=== PATIENT | male | born 1945 | race African-American/Black ===

== ENCOUNTER 2016-08-28 14:47 | Emergency (ER) | payer MEDICARE, MEDICAID ==
[~2016-08-28] VITALS: Ht 170.2 cm; Wt 90.7 kg
[2016-08-28 15:43] LABS: BASOPHILS % (AUTO) 0.8 % (0.0-2.0); EOSINOPHILS % (AUTO) 1.4 % (0.0-3.0); LYMPHOCYTES % (AUTO) 22.5 % (20.0-45.0); MEAN CORPUSCULAR HEMOGLOBIN 30.5 PG (27.0-31.0); MEAN CORPUSCULAR HGB CONC 32.9 G/DL (32.0-36.0); MEAN CORPUSCULAR VOLUME 93 FL (80-99); MEAN PLATELET VOLUME 5.7 FL (6.5-10.1); MONOCYTES % (AUTO) 8.5 % (1.0-10.0); NEUTROPHILS % (AUTO) 66.9 % (45.0-75.0); PLATELET COUNT 215 K/UL (150-450); RED BLOOD COUNT 4.36 M/UL (4.70-6.10)
[2016-08-28 15:58] LABS: PROTHROMBIN TIME 10.7 SEC (9.30-11.50)
[2016-08-28 16:00] LABS: TROPONIN I < 0.30 ng/mL (<=0.30)
[2016-08-28 16:01] LABS: ALANINE AMINOTRANSFERASE 21 U/L (3-41); ALBUMIN/GLOBULIN RATIO 1.3 (1.0-2.7); ANION GAP 12 (5-15); ASPARTATE AMINO TRANSFERASE 21 U/L (5-40); CALCIUM 9.6 mg/dL (8.6-10.2); CARBON DIOXIDE 27 mEQ/L (20-30); CHLORIDE 99 mEQ/L (98-107); CREATININE 1.1 mg/dL (0.7-1.2); HEMOLYSIS 6; POTASSIUM 4.2 mEQ/L (3.4-4.9); SODIUM 138 mEQ/L (135-145); TOTAL PROTEIN 6.9 g/dL (6.6-8.7)
[2016-08-28 17:30] LABS: KETONES,URINE NEGATIVE (NEGATIVE); LEUKOCYTE ESTERASE ,URINE NEGATIVE (NEGATIVE); NITRITE,URINE NEGATIVE (NEGATIVE); PH,URINE 5 (4.5-8.0); PROTEIN,URINE NEGATIVE (NEGATIVE); UROBILINOGEN,URINE 4 MG/DL (0.0-1.0)
[2016-08-28 17:31] LABS: APPEARANCE,URINE CLEAR
[2016-08-28] MEDS ORDERED: FOLIC ACID1 MG ORAL (17:31)
[2016-08-28] MEDS ORDERED: ACETAMINOPHEN325 M1 ORAL (17:31)
[2016-08-28] MEDS ORDERED: GABAPENTIN300 MG ORAL (17:31)
[2016-08-28] MEDS ORDERED: FUROSEMIDE20 M1 ORAL (17:31)
[2016-08-28] MEDS ORDERED: HUMULIN R100 UNIT/1 SUBQ (17:32)
[2016-08-28] MEDS ORDERED: LIDOCAINE 0.5% TOPIC (17:36)
[2016-08-28] MEDS ORDERED: METFORMIN HCL500 M1 ORAL (17:36)
[2016-08-28] MEDS ORDERED: MILK OF MA400 MG/51 ORAL (17:36)
[2016-08-28] MEDS ORDERED: REGLAN10 M1 ORAL (17:36)
[2016-08-28] MEDS ORDERED: IMODIUM2 MG ORAL (17:36)
[2016-08-28] MEDS ORDERED: METOPROLOL TART25 MG ORAL (17:36)
[2016-08-28] MEDS ORDERED: Mylanta ORAL (17:38)
[2016-08-28] MEDS ORDERED: PAROXETINE HCL20 MG PO (17:38)
[2016-08-28] MEDS ORDERED: SIMVASTATIN40 MG ORAL (17:38)
[2016-08-28] MEDS ORDERED: SEROQUEL200 MG ORAL (17:38)
[2016-08-28 18:52] VITALS: BP 125/76
--- NOTE | 2016-08-28 19:00 | Emergency Room Report ---
History of Present Illness General Chief Complaint: General Complaint Source: Patient, Medical Record, EMS Present Illness HPI Patient presents with h/o alleged fever 102 this am. Patient denies all symptoms. He has chronic weakness which has not changed. H/O polyneuropathy, osteoarthritis and gastroparesis. In SNF. 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 [place] Reviewed Nursing Documentation: PMH: Agreed, PSxH: Agreed Nursing Documentation-PMH Past Medical History: No History, Except For Hx Hypertension: Yes Hx Asthma: Yes - Acute respiratory faioure with hypoxia Hx Diabetes: Yes Hx Gastrointestinal Problems: Yes - Gastroparesis History Of Psychiatric Problem: Yes - Paranoid schizophrenia, Major depression Hx Neurological Problems: Yes - polyneuropathy, generalzied weakness Review of Systems All Other Systems: negative except mentioned in HPI Physical Exam Vital Signs Date Time Temp Pulse Resp B/P Pulse Ox O2 Delivery O2 Flow Rate FiO2 08/28/16 14:52 98.2 70 18 110/70 100 Room Air Sp02 EP Interpretation: reviewed, normal General Appearance: well appearing, no apparent distress, GCS 15 Head: normocephalic Eyes: bilateral eye PERRL, bilateral eye normal inspection ENT: moist mucus membranes Neck: supple Respiratory: lungs clear, normal breath sounds Cardiovascular #1: regular rate, rhythm, edema - LE Cardiovascular #2: 2+ radial (R) Gastrointestinal: normal inspection, normal bowel sounds, non tender, no mass, non-distended, overweight Genitourinary: normal inspection Musculoskeletal: back normal, no calf tenderness Neurologic: alert, oriented x3, motor weakness - lower extremities Psychiatric: mood/affect normal Skin: normal inspection, warm/dry Medical Decision Making Diagnostic Impression: Primary Impression: Encounter for generalized patient complaints ER Course Patient here for evaluation of reported fever. DDx: UTI, pneumonia, cellulitis amongst others. Evaluation with EKG, labs, CXR. Treatment with some IV hydration. No infectious source identified. Labs, EKG, CXR normal. Discussed with Dr. Martinez. Laura for outpatient observation and treatment. Laboratory Tests Test 08/28/16 15:30 08/28/16 16:00 White Blood Count 6.0 K/UL (4.8-10.8) Red Blood Count 4.36 M/UL (4.70-6.10) L Hemoglobin 13.3 G/DL (14.2-18.0) L Hematocrit 40.4 % (42.0-52.0) L Mean Corpuscular Volume 93 FL (80-99) Mean Corpuscular Hemoglobin 30.5 PG (27.0-31.0) Mean Corpuscular Hemoglobin Concent 32.9 G/DL (32.0-36.0) Red Cell Distribution Width 12.0 % (11.6-14.8) Platelet Count 215 K/UL (150-450) Mean Platelet Volume 5.7 FL (6.5-10.1) L Neutrophils (%) (Auto) 66.9 % (45.0-75.0) Lymphocytes (%) (Auto) 22.5 % (20.0-45.0) Monocytes (%) (Auto) 8.5 % (1.0-10.0) Eosinophils (%) (Auto) 1.4 % (0.0-3.0) Basophils (%) (Auto) 0.8 % (0.0-2.0) Prothrombin Time 10.7 SEC (9.30-11.50) Prothrombin Time INR 1.0 (0.9-1.1) PTT 27 SEC (23-33) Sodium Level 138 mEQ/L (135-145) Potassium Level 4.2 mEQ/L (3.4-4.9) Chloride Level 99 mEQ/L (98-107) Carbon Dioxide Level 27 mEQ/L (20-30) Anion Gap 12 (5-15) Blood Urea Nitrogen 15 mg/dL (7-23) Creatinine 1.1 mg/dL (0.7-1.2) Estimate Glomerular Filtration Rate mL/min (>60) Glucose Level 137 mg/dL (74-106) H Lactic Acid Level 1.90 mmol/L (0.66-2.22) Calcium Level 9.6 mg/dL (8.6-10.2) Total Bilirubin 0.5 mg/dL (0.0-1.2) Aspartate Amino Transferase (AST) 21 U/L (5-40) Alanine Aminotransferase (ALT) 21 U/L (3-41) Alkaline Phosphatase 50 U/L (40-129) Total Creatine Kinase 87 U/L (38-174) Troponin I < 0.30 ng/mL (<=0.30) Pro-B-Type Natriuretic Peptide 62 pg/mL (0-125) Total Protein 6.9 g/dL (6.6-8.7) Albumin 3.9 g/dL (3.5-5.2) Globulin 3.0 g/dL Albumin/Globulin Ratio 1.3 (1.0-2.7) Urine Color Yellow Urine Appearance Clear Urine pH 5 (4.5-8.0) Urine Specific [place] 1.015 (1.005-1.035) Urine Protein Negative (NEGATIVE) Urine Glucose (UA) Negative (NEGATIVE) Urine Ketones Negative (NEGATIVE) Urine Occult Blood Negative (NEGATIVE) Urine Nitrite Negative (NEGATIVE) Urine Bilirubin Negative (NEGATIVE) Urine Urobilinogen 4 MG/DL (0.0-1.0) H Urine Leukocyte Esterase Negative (NEGATIVE) EKG Diagnostic Results Rate: normal Rhythm: NSR ST Segments: no acute changes Rhythm Strip Diag. Results EP Interpretation: yes Rhythm: NSR, no PVC's, no ectopy Chest X-Ray Diagnostic Results Chest X-Ray Diagnostic Results : Chest X-Ray Ordered: Yes # of Views/Limited/Complete: 1 View Indication: Other EP Interpretation: Yes Interpretation: no consolidation, no effusion, no pneumothorax, no acute cardiopulmonary disease Impression: No acute disease Interpreting ER Provider: Electronic signature Hugo Perez MD Last Vital Signs Date Time Temp Pulse Resp B/P Pulse Ox O2 Delivery O2 Flow Rate FiO2 08/28/16 20:44 70 18 Room Air 08/28/16 20:36 1/1 08/28/16 20:30 98.2 100 BP 131/75 Status: improved Disposition: XFER SNF Condition: Stable Referrals: AMADOU MARTINEZ (PCP) Hugo Perez M.D. Aug 28, 2016 19:00
[2016-08-28 20:30] VITALS: BP 131/75
[2016-08-28 20:36] VITALS: BP 1/1
--- NOTE | 2016-08-29 09:04 | Diagnostic Imaging Report ---
Indication: COUGH Technique: XRAY CHEST 1 V Comparison: None. Findings: The patient has taken a poor inspiration. The cardiomediastinal silhouette is normal. The lungs are clear. There is no evidence of pleural fluid. The bony structures are unremarkable. Impression: Poor inspiratory chest. Otherwise grossly negative.
--- NOTE | 2016-09-02 01:00 | Cardiology Report ---
APPROVED REPORT EKG Measurement Heart [id number] Normal sinus rhythm Normal ECG
== END 2016-08-28 21:00 ==
LOC: EDBD 14:47 → EMR 15:29
DX: J45.909 Unspecified asthma, uncomplicated (principal); I10 Essential (primary) hypertension; E11.9 Type 2 diabetes mellitus without complications; F20.0 Paranoid schizophrenia; F32.9 Major depressive disorder, single episode, unspecified
CPT/HCPCS: 36415; 71010; 80053; 81003; 82550; 83605; 83880; 84484; 85025; 85610; 85730; 93005; 99283

== ENCOUNTER 2016-12-09 12:29 | Emergency (ER) | payer MEDICARE, MEDICAID ==
[~2016-12-09] VITALS: Ht 172.7 cm; Wt 90.7 kg
[~2016-12-09 12:29] MED LIST: ACETAMINOPHEN325 M1 ORAL; FOLIC ACID1 MG ORAL; FUROSEMIDE20 M1 ORAL; GABAPENTIN300 MG ORAL; HUMULIN R100 UNIT/1 SUBQ; IMODIUM2 MG ORAL; LIDOCAINE 0.5% TOPIC; METFORMIN HCL500 M1 ORAL; METOPROLOL TART25 MG ORAL; MILK OF MA400 MG/51 ORAL; Mylanta ORAL; PAROXETINE HCL20 MG PO; REGLAN10 M1 ORAL; SEROQUEL200 MG ORAL; SIMVASTATIN40 MG ORAL
[2016-12-09 13:00] VITALS: BP 136/82
[2016-12-09] MEDS ORDERED: Sodium Chloride 500ML 500 ML IV ONE (13:00)
[2016-12-09 14:09] LABS: EOSINOPHILS % (AUTO) 1.5 % (0.0-3.0); HEMOGLOBIN 13.8 G/DL (14.2-18.0); LYMPHOCYTES % (AUTO) 21.4 % (20.0-45.0); MEAN CORPUSCULAR VOLUME 92 FL (80-99); MONOCYTES % (AUTO) 10.1 % (1.0-10.0); NEUTROPHILS % (AUTO) 66.1 % (45.0-75.0); PLATELET COUNT 228 K/UL (150-450); RED BLOOD COUNT 4.58 M/UL (4.70-6.10); RED CELL DISTRIBUTION WIDTH 12.1 % (11.6-14.8); WHITE BLOOD COUNT 6.4 K/UL (4.8-10.8)
[2016-12-09 14:14] LABS: ANION GAP 5 mmol/L (5-15); BLOOD UREA NITROGEN 13 mg/dL (7-18); CALCIUM 9.8 MG/DL (8.5-10.1); CARBON DIOXIDE 31 MMOL/L (21-32); CHLORIDE 104 MMOL/L (98-107); CREATININE 1.2 MG/DL (0.55-1.30); POTASSIUM 4.1 MMOL/L (3.5-5.1); SODIUM 140 MMOL/L (136-145)
[2016-12-09 14:32] LABS: ALANINE AMINOTRANSFERASE 36 U/L (12-78); ALBUMIN 3.7 G/DL (3.4-5.0); ALBUMIN/GLOBULIN RATIO 0.9 (1.0-2.7); ALKALINE PHOSPHATASE 62 U/L (46-116); ASPARTATE AMINO TRANSFERASE 26 U/L (15-37); BILIRUBIN,TOTAL 0.4 MG/DL (0.2-1.0); CKMB 1.2 NG/ML (0.0-3.6); CREATINE KINASE 76 U/L (26-308)
--- NOTE | 2016-12-09 14:41 | Diagnostic Imaging Report ---
Indications: Altered mental status Technique: Spiral acquisitions obtained through the brain. Angled axial and coronal 5 x 5 mm slices were reconstructed. Total dose length product 1492 mGycm. CTDI vol(s) in the mGy. Dose reduction achieved using automated exposure control Comparison: None Findings: No acute intracranial hemorrhage or edema. No mass effect or midline shift. There is marked ventriculomegaly. There is only mild enlargement of the extra-axial CSF spaces. There is considerable periventricular deep white matter low-attenuation. There is a patent cavum septum pellucidum. Normal monsivais-white differentiation. Visualized orbits and sinuses are unremarkable. The calvarium is intact. Impression: Ventriculomegaly, probably on the basis of central volume loss. However, is out of proportion to the degree of cortical volume loss, so the possibility of normal pressure hydrocephalus should also be considered Periventricular the white matter low-attenuation, probably on the basis of chronic ischemic change. Could indicate transependymal migration of CSF, however, in the setting of normal pressure hydrocephalus. Negative for acute intracranial bleed or mass effect This agrees with the preliminary interpretation provided by Dr. Lauren The CT scanner at [facility] is accredited by the [employer] and the scans are performed using protocols designed to limit radiation exposure to as low as reasonably achievable to attain images of sufficient resolution adequate for diagnostic evaluation.
--- NOTE | 2016-12-09 14:48 | Diagnostic Imaging Report ---
Indication: AMS Technique: One view of the chest Comparison: 08/28/2016 Findings: Better inspiration and better exposure currently Lungs and pleural spaces are clear. Heart size is normal. Accounting for differences in exposure technique, no significant interim change Impression: No acute process
[2016-12-09 15:10] VITALS: BP 146/85
--- NOTE | 2016-12-09 15:16 | Emergency Room Report ---
History of Present Illness General Chief Complaint: Multiple Trauma/Fall Source: Medical Record Present Illness Allergies: Coded Allergies: No Known Allergies (Unverified , 08/28/16) Nursing Documentation-[facility] Past Medical History: No History, Except For Hx Hypertension: Yes Hx Asthma: Yes - Acute respiratory faioure with hypoxia Hx Diabetes: Yes Hx Gastrointestinal Problems: Yes - Gastroparesis Hx Neurological Problems: Yes - polyneuropathy, generalzied weakness Physical Exam Vital Signs Date Time Temp Pulse Resp B/P (MAP) Pulse Ox O2 Delivery O2 Flow Rate FiO2 12/09/16 12:32 97.5 70 16 123/84 97 Room Air 12/09/16 13:00 2.0 Medical Decision Making Medicare Attestation The history of Torito Coreas has been reviewed and management options for him have been examined and discussed by Julián Hudson. I have personally examined and interviewed the patient. Diagnostic Impression: Primary Impression: Multiple injuries due to trauma EKG Diagnostic Results Rate: normal Rhythm: NSR ST Segments: no acute changes ASA given to the pt in ED: No Rhythm Strip Diag. Results EP Interpretation: yes Rhythm: NSR, no PVC's, no ectopy Last Vital Signs Date Time Temp Pulse Resp B/P (MAP) Pulse Ox O2 Delivery O2 Flow Rate FiO2 12/09/16 15:10 68 12 146/85 100 2.0 12/09/16 13:00 Nasal Cannula 12/09/16 12:32 97.5 Status: improved Disposition: HOME, SELF-CARE Condition: Stable Referrals: KATHY CARRION (PCP) Patient Instructions: Head Injury, Adult, [id number] JULIÁN HUDSON M.D. Dec 09, 2016 15:16
--- NOTE | 2016-12-09 15:16 | Emergency Room Report ---
History of Present Illness General Chief Complaint: Multiple Trauma/Fall Source: Medical Record Present Illness Allergies: Coded Allergies: No Known Allergies (Unverified , 08/28/16) Nursing Documentation-[facility] Past Medical History: No History, Except For Hx Hypertension: Yes Hx Asthma: Yes - Acute respiratory faioure with hypoxia Hx Diabetes: Yes Hx Gastrointestinal Problems: Yes - Gastroparesis Hx Neurological Problems: Yes - polyneuropathy, generalzied weakness Physical Exam Vital Signs Date Time Temp Pulse Resp B/P (MAP) Pulse Ox O2 Delivery O2 Flow Rate FiO2 12/09/16 12:32 97.5 70 16 123/84 97 Room Air 12/09/16 13:00 2.0 Medical Decision Making Medicare Attestation The history of Torito Coreas has been reviewed and management options for him have been examined and discussed by Julián Hudson. I have personally examined and interviewed the patient. Diagnostic Impression: Primary Impression: Multiple injuries due to trauma EKG Diagnostic Results Rate: normal Rhythm: NSR ST Segments: no acute changes ASA given to the pt in ED: No Rhythm Strip Diag. Results EP Interpretation: yes Rhythm: NSR, no PVC's, no ectopy Last Vital Signs Date Time Temp Pulse Resp B/P (MAP) Pulse Ox O2 Delivery O2 Flow Rate FiO2 12/09/16 15:10 68 12 146/85 100 2.0 12/09/16 13:00 Nasal Cannula 12/09/16 12:32 97.5 Status: improved Disposition: HOME, SELF-CARE Condition: Stable Referrals: KATHY CARRION (PCP) Patient Instructions: Head Injury, Adult, [id number] JULIÁN HUDSON M.D. Dec 09, 2016 15:16
--- NOTE | 2016-12-09 15:16 | Emergency Room Report ---
History of Present Illness General Chief Complaint: Multiple Trauma/Fall Source: Medical Record Present Illness Allergies: Coded Allergies: No Known Allergies (Unverified , 08/28/16) Nursing Documentation-[facility] Past Medical History: No History, Except For Hx Hypertension: Yes Hx Asthma: Yes - Acute respiratory faioure with hypoxia Hx Diabetes: Yes Hx Gastrointestinal Problems: Yes - Gastroparesis Hx Neurological Problems: Yes - polyneuropathy, generalzied weakness Physical Exam Vital Signs Date Time Temp Pulse Resp B/P (MAP) Pulse Ox O2 Delivery O2 Flow Rate FiO2 12/09/16 12:32 97.5 70 16 123/84 97 Room Air 12/09/16 13:00 2.0 Medical Decision Making Medicare Attestation The history of Torito Coreas has been reviewed and management options for him have been examined and discussed by Julián Hudson. I have personally examined and interviewed the patient. Diagnostic Impression: Primary Impression: Multiple injuries due to trauma EKG Diagnostic Results Rate: normal Rhythm: NSR ST Segments: no acute changes ASA given to the pt in ED: No Rhythm Strip Diag. Results EP Interpretation: yes Rhythm: NSR, no PVC's, no ectopy Last Vital Signs Date Time Temp Pulse Resp B/P (MAP) Pulse Ox O2 Delivery O2 Flow Rate FiO2 12/09/16 15:10 68 12 146/85 100 2.0 12/09/16 13:00 Nasal Cannula 12/09/16 12:32 97.5 Status: improved Disposition: HOME, SELF-CARE Condition: Stable Referrals: KATHY CARRION (PCP) Patient Instructions: Head Injury, Adult, [id number] JULIÁN HUDSON M.D. Dec 09, 2016 15:16
[2016-12-09 15:55] VITALS: BP 133/84
[2016-12-09 16:27] VITALS: BP 133/84
--- NOTE | 2016-12-11 14:50 | Cardiology Report ---
APPROVED REPORT EKG Measurement Heart [id number] Normal sinus rhythm Normal ECG
--- NOTE | 2016-12-11 14:50 | Cardiology Report ---
APPROVED REPORT EKG Measurement Heart [id number] [place] 192P52 [id number] Normal sinus rhythm Normal ECG
--- NOTE | 2016-12-11 14:50 | Cardiology Report ---
APPROVED REPORT EKG Measurement Heart [id number] [place] 192P52 [id number] Normal sinus rhythm Normal ECG
--- NOTE | 2016-12-13 14:48 | Emergency Room Report ---
History of Present Illness General Chief Complaint: Multiple Trauma/Fall Source: Medical Record Present Illness HPI 71-year-old male presents to ED for evaluation. Patient resides [facility] and had a mechanical fall from his wheelchair today. Witnessed. Patient states he hit his head. Denies LOC. Patient presents for evaluation. Denies any pain. Denies any headache. Denies any back pain or hip pain. No other aggravating relieving factors. Denies any other associated symptoms Allergies: Coded Allergies: No Known Allergies (Unverified , 08/28/16) Patient History Past Medical History: none, other - gastroparesis Past Surgical History: none Pertinent Family History: none Social History: Denies: smoking, alcohol use, drug use Immunizations: UTD Reviewed Nursing Documentation: PMH: Agreed, PSxH: Agreed Nursing Documentation-PMH Past Medical History: No History, Except For Hx Hypertension: Yes Hx Asthma: Yes - Acute respiratory faioure with hypoxia Hx Diabetes: Yes Hx Gastrointestinal Problems: Yes - Gastroparesis Hx Neurological Problems: Yes - polyneuropathy, generalzied weakness Review of Systems All Other Systems: negative except mentioned in HPI Physical Exam Vital Signs Date Time Temp Pulse Resp B/P (MAP) Pulse Ox O2 Delivery O2 Flow Rate FiO2 12/09/16 12:32 97.5 70 16 123/84 97 Room Air 12/09/16 13:00 2.0 Sp02 EP Interpretation: reviewed, normal General Appearance: no apparent distress, alert, GCS 15, non-toxic Head: normocephalic, atraumatic Eyes: bilateral eye normal inspection, bilateral eye PERRL ENT: hearing grossly normal, normal pharynx, no angioedema, normal voice Neck: full range of motion, supple/symm/no masses Respiratory: chest non-tender, lungs clear, normal breath sounds, speaking full sentences Cardiovascular #1: regular rate, rhythm, no edema Cardiovascular #2: 2+ carotid (R), 2+ carotid (L), 2+ radial (R), 2+ radial (L) , 2+ dorsalis pedis (R), 2+ dorsalis pedis (L) Gastrointestinal: normal bowel sounds, non tender, soft, non-distended, no guarding, no rebound Rectal: deferred Genitourinary: normal inspection, no CVA tenderness Musculoskeletal: back normal, gait/station normal, normal range of motion, non- tender Neurologic: alert, oriented x3, responsive, motor strength/tone normal, sensory intact, speech normal Psychiatric: judgement/insight normal, memory normal, mood/affect normal, no suicidal/homicidal ideation Reflexes: 3+ bicep (R), 3+ bicep (L), 3+ tricep (R), 3+ tricep (L), 3+ knee (R) , 3+ knee (L) Skin: normal color, no rash, warm/dry, well hydrated Lymphatic: no adenopathy Medical Decision Making Diagnostic Impression: Primary Impression: Fall Qualified Codes: W19.XXXA - Unspecified fall, initial encounter ER Course Hospital Course 71 yo M presents to ED s/p fall at SNF. no complaints now Differential diagnoses include: arrythmia, dehydration, intracranial bleed, seizure Clinical course Patient placed on stretcher. on ekg monitor. After initial history and physical I ordered labs, EKG, chest Xray, IVFs, CT Brain labs reviewed- no leukocytosis, Hb/Hct stable, electrolytes ok, troponins negative CT Brain - unremarkable Chest x-ray- no acute process EKG - NSR, no acute ischemic changes interpreted by me Patient is at baseline. Wishes to be discharged. I spoke to admitting physician and he agrees that patient can be safely discharged to SNF I. I feel this is a highly complex case requiring extensive working including EKG/Rhythm strip, Xray/CT/US, Blood/urine lab work, repeat exams while in ED, and administration of strong opiates/narcotics for pain control, admission to hospital or close patient follow up. Diagnosis - fall Stable and discharged to SNF. Followup with PMD. Return to ED if symptoms recur or worsen Labs Test 12/09/16 14:00 White Blood Count 6.4 K/UL (4.8-10.8) Red Blood Count 4.58 M/UL (4.70-6.10) Hemoglobin 13.8 G/DL (14.2-18.0) Hematocrit 42.0 % (42.0-52.0) Mean Corpuscular Volume 92 FL (80-99) Mean Corpuscular Hemoglobin 30.1 PG (27.0-31.0) Mean Corpuscular Hemoglobin Concent 32.8 G/DL (32.0-36.0) Red Cell Distribution Width 12.1 % (11.6-14.8) Platelet Count 228 K/UL (150-450) Mean Platelet Volume 6.5 FL (6.5-10.1) Neutrophils (%) (Auto) 66.1 % (45.0-75.0) Lymphocytes (%) (Auto) 21.4 % (20.0-45.0) Monocytes (%) (Auto) 10.1 % (1.0-10.0) Eosinophils (%) (Auto) 1.5 % (0.0-3.0) Basophils (%) (Auto) 1.0 % (0.0-2.0) Sodium Level 140 MMOL/L (136-145) Potassium Level 4.1 MMOL/L (3.5-5.1) Chloride Level 104 MMOL/L (98-107) Carbon Dioxide Level 31 MMOL/L (21-32) Anion Gap 5 mmol/L (5-15) Blood Urea Nitrogen 13 mg/dL (7-18) Creatinine 1.2 MG/DL (0.55-1.30) Estimat Glomerular Filtration Rate mL/min (>60) Glucose Level 100 MG/DL (74-106) Calcium Level 9.8 MG/DL (8.5-10.1) Total Bilirubin 0.4 MG/DL (0.2-1.0) Aspartate Amino Transf (AST/SGOT) 26 U/L (15-37) Alanine Aminotransferase (ALT/SGPT) 36 U/L (12-78) Alkaline Phosphatase 62 U/L (46-116) Total Creatine Kinase 76 U/L (26-308) Creatine Kinase MB 1.2 NG/ML (0.0-3.6) Creatine Kinase MB Relative Index 1.5 Troponin I 0.000 ng/mL (0.000-0.056) Total Protein 7.7 G/DL (6.4-8.2) Albumin 3.7 G/DL (3.4-5.0) Globulin 4.0 g/dL Albumin/Globulin Ratio 0.9 (1.0-2.7) EKG Diagnostic Results Rate: normal Rhythm: NSR ST Segments: no acute changes ASA given to the pt in ED: No Rhythm Strip Diag. Results EP Interpretation: yes Rhythm: NSR, no PVC's, no ectopy Chest X-Ray Diagnostic Results Chest X-Ray Diagnostic Results : Chest X-Ray Ordered: Yes # of Views/Limited/Complete: 1 View Indication: Chest Pain EP Interpretation: Yes Interpretation: no consolidation, no effusion, no pneumothorax, no acute cardiopulmonary disease Impression: No acute disease Electronically Signed by: Electronically signed by Julián Hudson MD CT/MRI/US Diagnostic Results CT/MRI/US Diagnostic Results : Imaging Test Ordered: CT head Impression no acute process Last Vital Signs Date Time Temp Pulse Resp B/P (MAP) Pulse Ox O2 Delivery O2 Flow Rate FiO2 12/09/16 16:27 67 10 133/84 100 Room Air 12/09/16 15:55 97.9 2.0 Status: improved Disposition: XFER SNF Condition: Stable Referrals: KATHY CARRION (PCP) Patient Instructions: Head Injury, Adult, [id number] JULIÁN HUDSON M.D. Dec 13, 2016 14:48
== END 2016-12-09 16:27 | disposition home or self-care (01) ==
LOC: EDBD 12:29 → EMR 13:07
DX: Z04.3 Encounter for examination and observation following other accident (principal); Z91.81 History of falling; I10 Essential (primary) hypertension; E11.42 Type 2 diabetes mellitus with diabetic polyneuropathy; R41.82 Altered mental status, unspecified
CPT/HCPCS: 36415; 70450; 71010; 80053; 82550; 82553; 84484; 85025; 93005; 96360; 99284

== ENCOUNTER 2017-11-08 13:55 | Inpatient (IN) | payer MEDICARE, MEDICAID ==
[~2017-11-08] VITALS: Ht 182.9 cm; Wt 53.1 kg
[2017-11-08 13:57] VITALS: BP 113/74
[2017-11-08] MEDS ORDERED: Sodium Chloride 500ML 500 ML IV ONE (14:09)
[2017-11-08] MEDS ORDERED: Aspirin Baby 81mg ORAL ONE (14:15)
--- NOTE | 2017-11-08 14:33 | Emergency Room Report ---
History of Present Illness General Chief Complaint: Syncope Source: Medical Record Present Illness HPI Patient presents emergency department today with syncopal event. Patient apparently was at a correction and had multiple falls with syncope. Patient states that he didn't faint. However he is a poor historian. No further history was available at this time. No other complaints are noted. Symptoms noted to be severe.No other modifying factors. No other associated signs and symptoms. No other complaints were noted.Of note patient denies any headache or head trauma denies any neck pain. Denies any chest pain has mild shortness of breath. Allergies: Coded Allergies: No Known Allergies (Unverified , 08/28/16) Patient History Past Medical History: DM, asthma, GERD, other - History of respiratory failure Past Surgical History: none Pertinent Family History: none Social History: Denies: smoking, alcohol use, drug use Reviewed Nursing Documentation: PMH: Agreed; PSxH: Agreed Nursing Documentation-PMH Hx Asthma: Yes - Acute respiratory faioure with hypoxia Hx Diabetes: Yes Hx Gastrointestinal Problems: Yes - gerd Review of Systems All Other Systems: negative except mentioned in HPI Physical Exam Vital Signs Date Time Temp Pulse Resp B/P (MAP) Pulse Ox O2 Delivery O2 Flow Rate FiO2 11/08/17 13:48 97.2 76 16 120/80 97 Room Air 97.2 Sp02 EP Interpretation: reviewed, normal General Appearance: alert, mild distress, obese Head: atraumatic Eyes: bilateral eye normal inspection ENT: normal ENT inspection, hearing grossly normal, normal voice Neck: normal inspection, full range of motion, supple, no bony tend Respiratory: normal inspection, lungs clear, normal breath sounds, no respiratory distress, no retraction, no wheezing Cardiovascular #1: regular rate, rhythm, no edema Gastrointestinal: normal inspection, normal bowel sounds, non tender, soft, no guarding, no hernia Genitourinary: no CVA tenderness Musculoskeletal: normal inspection, back normal, normal range of motion Neurologic: normal inspection, alert, responsive, other - Slow speech Psychiatric: depressed affect, other - Decreased memory Skin: normal inspection, normal color, no rash Medical Decision Making Diagnostic Impression: Primary Impression: Syncope Additional Impressions: Arrhythmia Pancreatitis ER Course Patient presents emergency department today with syncope. Differential considerations include acute electrolyte abnormality, acute infectious process, acute cord syndrome, acute arrhythmia just to name a few.Given the severity of the patient's presentation I felt this is a highly complex patient. This patient required extensive workup. Patient laboratory workup actually shows an elevated lipase is consistent with pancreatitis. Given severe patient presentation for the patient quite admission. Case was discussed with admitting physician. Labs Test 11/08/17 14:10 11/08/17 15:30 White Blood Count 4.5 K/UL (4.8-10.8) Red Blood Count 4.91 M/UL (4.70-6.10) Hemoglobin 13.9 G/DL (14.2-18.0) Hematocrit 42.6 % (42.0-52.0) Mean Corpuscular Volume 87 FL (80-99) Mean Corpuscular Hemoglobin 28.3 PG (27.0-31.0) Mean Corpuscular Hemoglobin Concent 32.6 G/DL (32.0-36.0) Red Cell Distribution Width 11.9 % (11.6-14.8) Platelet Count 244 K/UL (150-450) Mean Platelet Volume 6.3 FL (6.5-10.1) Neutrophils (%) (Auto) 49.0 % (45.0-75.0) Lymphocytes (%) (Auto) 39.0 % (20.0-45.0) Monocytes (%) (Auto) 8.6 % (1.0-10.0) Eosinophils (%) (Auto) 2.3 % (0.0-3.0) Basophils (%) (Auto) 1.1 % (0.0-2.0) Sodium Level 142 MMOL/L (136-145) Potassium Level 4.2 MMOL/L (3.5-5.1) Chloride Level 105 MMOL/L (98-107) Carbon Dioxide Level 27 MMOL/L (21-32) Anion Gap 10 mmol/L (5-15) Blood Urea Nitrogen 11 mg/dL (7-18) Creatinine 0.9 MG/DL (0.55-1.30) Estimat Glomerular Filtration Rate mL/min (>60) Glucose Level 96 MG/DL (74-106) Calcium Level 9.3 MG/DL (8.5-10.1) Total Bilirubin 0.6 MG/DL (0.2-1.0) Aspartate Amino Transf (AST/SGOT) 34 U/L (15-37) Alanine Aminotransferase (ALT/SGPT) 31 U/L (12-78) Alkaline Phosphatase 62 U/L (46-116) Total Creatine Kinase 132 U/L (26-308) Creatine Kinase MB 0.5 NG/ML (0.0-3.6) Creatine Kinase MB Relative Index 0.3 Troponin I 0.003 ng/mL (0.000-0.056) Pro-B-Type Natriuretic Peptide 31 pg/mL (0-125) Total Protein 8.0 G/DL (6.4-8.2) Albumin 3.7 G/DL (3.4-5.0) Globulin 4.3 g/dL Albumin/Globulin Ratio 0.9 (1.0-2.7) Lipase 1387 U/L (73-393) Urine Color Malinda Urine Appearance Clear Urine pH 5 (4.5-8.0) Urine Specific [place] 1.015 (1.005-1.035) Urine Protein Negative (NEGATIVE) Urine Glucose (UA) Negative (NEGATIVE) Urine Ketones Negative (NEGATIVE) Urine Blood Negative (NEGATIVE) Urine Nitrite Negative (NEGATIVE) Urine Bilirubin Negative (NEGATIVE) Urine Ictotest Negative (NEGATIVE) Urine Urobilinogen 1 MG/DL (0.0-1.0) Urine Leukocyte Esterase Negative (NEGATIVE) EKG Diagnostic Results Rate: normal Rhythm: NSR ST Segments: no acute changes Rhythm Strip Diag. Results EP Interpretation: yes Rate: 66 Rhythm: NSR, no PVC's, no ectopy Chest X-Ray Diagnostic Results Chest X-Ray Diagnostic Results : Chest X-Ray Ordered: Yes # of Views/Limited/Complete: 1 View Indication: Shortness of Breath EP Interpretation: No Impression: No acute disease Last Vital Signs Date Time Temp Pulse Resp B/P (MAP) Pulse Ox O2 Delivery O2 Flow Rate FiO2 11/08/17 13:57 97.2 73 19 113/74 100 Room Air 97.2 Status: improved Disposition: ADMITTED INPATIENT Condition: Serious Aris Souza MD Nov 08, 2017 14:33
[2017-11-08 14:40] LABS: BASOPHILS % (AUTO) 1.1 % (0.0-2.0); EOSINOPHILS % (AUTO) 2.3 % (0.0-3.0); HEMATOCRIT 42.6 % (42.0-52.0); HEMOGLOBIN 13.9 G/DL (14.2-18.0); MEAN CORPUSCULAR VOLUME 87 FL (80-99); MONOCYTES % (AUTO) 8.6 % (1.0-10.0); PLATELET COUNT 244 K/UL (150-450); RED BLOOD COUNT 4.91 M/UL (4.70-6.10); RED CELL DISTRIBUTION WIDTH 11.9 % (11.6-14.8); WHITE BLOOD COUNT 4.5 K/UL (4.8-10.8)
[2017-11-08 14:50] LABS: ANION GAP 10 mmol/L (5-15); BLOOD UREA NITROGEN 11 mg/dL (7-18); CALCIUM 9.3 MG/DL (8.5-10.1); CARBON DIOXIDE 27 MMOL/L (21-32); CHLORIDE 105 MMOL/L (98-107); CREATININE 0.9 MG/DL (0.55-1.30); POTASSIUM 4.2 MMOL/L (3.5-5.1); SODIUM 142 MMOL/L (136-145)
[2017-11-08 15:03] LABS: ALANINE AMINOTRANSFERASE 31 U/L (12-78); ALBUMIN 3.7 G/DL (3.4-5.0); ALBUMIN/GLOBULIN RATIO 0.9 (1.0-2.7); ALKALINE PHOSPHATASE 62 U/L (46-116); ASPARTATE AMINO TRANSFERASE 34 U/L (15-37); BILIRUBIN,TOTAL 0.6 MG/DL (0.2-1.0); CKMB 0.5 NG/ML (0.0-3.6); CREATINE KINASE 132 U/L (26-308)
[2017-11-08 15:33] VITALS: BP 113/74
[2017-11-08] MEDS ORDERED: GLUCAGEN1 M1 IJ (15:34)
[2017-11-08] MEDS ORDERED: MULTIVITAMINS1 EAC8 ORAL (15:34)
[2017-11-08 15:51] LABS: APPEARANCE,URINE CLEAR; BILIRUBIN, URINE NEGATIVE (NEGATIVE); COLOR,URINE AMBER; GLUCOSE, URINE (UA) NEGATIVE (NEGATIVE); KETONES,URINE NEGATIVE (NEGATIVE); LEUKOCYTE ESTERASE ,URINE NEGATIVE (NEGATIVE); NITRITE,URINE NEGATIVE (NEGATIVE); PH,URINE 5 (4.5-8.0); PROTEIN,URINE NEGATIVE (NEGATIVE); UROBILINOGEN,URINE 1 MG/DL (0.0-1.0)
--- NOTE | 2017-11-08 17:04 | Diagnostic Imaging Report ---
Indication: Cough Technique: One view of the chest Comparison: 12/09/2016 Findings: Lungs and pleural spaces are clear. Heart size is normal. No significant interim change Impression: No acute process
[2017-11-08] MEDS ORDERED: LORazepam Inj 2mg/ml 1ml IV PRN (18:30)
[2017-11-08] MEDS ORDERED: Morphine Sulfate 2mg/ml Inj IVP PRN (18:30)
[2017-11-08] MEDS ORDERED: Mylanta II UD 30ml ORAL PRN (18:30)
--- NOTE | 2017-11-08 19:28 | History & Physical ---
History and Physical History & Physicial Dictated for Int Med-Dr Frederick no. [id number]. Raymon Cunha MD Nov 08, 2017 19:28
[2017-11-08 20:00] VITALS: BP 138/96
[2017-11-08] MEDS: Metoprolol 25mg tab ORAL SCH (20:45)
[2017-11-08] MEDS: NovoLOG Insulin Flexpen SUBQ SCH (20:46)
[2017-11-08] MEDS: Heparin 5000 units/ml inj SUBQ SCH (20:46)
[2017-11-08] MEDS ORDERED: Zolpidem 5mg tab ORAL PRN (21:00)
[2017-11-08] MEDS ORDERED: Miralax 17gm pkt ORAL PRN (21:00)
[2017-11-09] VITALS: BP 141/89
[2017-11-09 04:00] VITALS: BP 139/81
[2017-11-09] MEDS: NovoLOG Insulin Flexpen SUBQ SCH ×4 (06:02→21:00)
[2017-11-09 06:57] LABS: HEMATOCRIT 40.8 % (42.0-52.0); HEMOGLOBIN 13.5 G/DL (14.2-18.0); MEAN CORPUSCULAR VOLUME 87 FL (80-99); PLATELET COUNT 173 K/UL (150-450); RED BLOOD COUNT 4.71 M/UL (4.70-6.10); RED CELL DISTRIBUTION WIDTH 11.6 % (11.6-14.8); WHITE BLOOD COUNT 3.1 K/UL (4.8-10.8)
[2017-11-09 07:27] LABS: ALANINE AMINOTRANSFERASE 29 U/L (12-78); ALBUMIN 3.4 G/DL (3.4-5.0); ALBUMIN/GLOBULIN RATIO 0.9 (1.0-2.7); ALKALINE PHOSPHATASE 57 U/L (46-116); ANION GAP 7 mmol/L (5-15); ASPARTATE AMINO TRANSFERASE 21 U/L (15-37); BILIRUBIN,TOTAL 0.7 MG/DL (0.2-1.0); BLOOD UREA NITROGEN 10 mg/dL (7-18); CALCIUM 9.4 MG/DL (8.5-10.1); CARBON DIOXIDE 28 MMOL/L (21-32); CHLORIDE 107 MMOL/L (98-107); CHOLESTEROL 128 MG/DL (< 200); CREATININE 0.9 MG/DL (0.55-1.30); HDL CHOLESTEROL 57 MG/DL (40-60); POTASSIUM 3.6 MMOL/L (3.5-5.1); SODIUM 142 MMOL/L (136-145); TRIGLYCERIDES 58 MG/DL (30-150)
[2017-11-09 08:00] VITALS: BP 137/93
[2017-11-09] MEDS: Metoprolol 25mg tab ORAL SCH ×2 (08:52→21:00)
[2017-11-09] MEDS: Heparin 5000 units/ml inj SUBQ SCH ×2 (08:57→21:43)
[2017-11-09] MEDS ORDERED: PARoxetine 20mg tab ORAL SCH ×2 (09:00→21:00)
--- NOTE | 2017-11-09 11:17 | Consultation ---
History of Present Illness General Date patient seen: Nov 09, 2017 Chief Complaint: Syncope Present Illness HPI 72 year old male with hx of DM, asthma, GERD, psychiatric disorder, [facility] resident presented to emergency department today with syncopal event. ad multiple falls with syncope. However he is a poor historian. No further history was available at this time. Pt is currently somnolent and doesn't want to response to my questions and threatening to hit me if I don't leave him alone. Allergies: Coded Allergies: No Known Allergies (Unverified , 08/28/16) Medication History Scheduled Folic Acid* (Folic Acid*), 1 MG ORAL DAILY, (Reported) Furosemide* (Lasix*), 20 MG ORAL DAILY, (Reported) Gabapentin* (Gabapentin*), 300 MG ORAL THREE TIMES A DAY, (Reported) Insulin Regular, Human (Humulin R), Unknown Dose SUBQ BEFORE MEALS AND HS, ( Reported) Metformin Hcl* (Metformin Hcl*), 500 MG ORAL TWICE A DAY, (Reported) Metoprolol Tartrate* (Metoprolol Tartrate*), 25 MG ORAL EVERY 12 HOURS, ( Reported) Multivitamin With Minerals (Multivitamins With Minerals*), 1 TAB ORAL DAILY, ( Reported) Paroxetine Hcl* (Paxil*), 40 MG PO DAILY, (Reported) Quetiapine Fumarate* (Seroquel*), 300 MG ORAL TWICE A DAY, (Reported) Simvastatin (Zocor), 40 MG ORAL BEDTIME, (Reported) [Lidocaine Gel 0.5%], 1 TOPIC DAILY, (Reported) Scheduled PRN Acetaminophen* (Acetaminophen 325MG Tablet*), 650 MG ORAL Q4H PRN for Mild Pain/ Temp > 100.5, (Reported) Loperamide HCl (Loperamide), 2 MG ORAL Q4H PRN for loose stool, (Reported) Magnesium Hydroxide* (Milk Of Magnesia*), 30 ML ORAL DAILY PRN for Constipation, (Reported) Metoclopramide Hcl* (Reglan*), 10 MG ORAL EVERY 8 HOURS PRN for GERD, (Reported) [Mylanta], 30 ML ORAL EVERY 4 HOURS PRN for GI distress, (Reported) Miscellaneous Medications Glucagon,Human Recombinant (Glucagen), 1 MG IJ, (Reported) Patient History Healthcare decision maker Patient Resuscitation status Full Code Advanced Directive on File Past Medical/Surgical History Past Medical/Surgical History: (1) Diabetes mellitus (2) History of asthma (3) Psychosis (4) Arrhythmia Review of Systems All Other Systems: negative except mentioned in HPI Physical Exam General Appearance: WD/WN Lines, tubes and drains: peripheral HEENT: normocephalic, atraumatic Neck: non-tender, normal alignment Respiratory/Chest: chest wall non-tender, lungs clear Cardiovascular/Chest: normal peripheral pulses, normal rate Abdomen: normal bowel sounds, non tender Genitourinary/Rectal: normal genital exam Extremities: normal range of motion Skin Exam: normal pigmentation Last 24 Hour Vital Signs Date Time Temp Pulse Resp B/P (MAP) Pulse Ox O2 Delivery O2 Flow Rate FiO2 11/09/17 09:00 Room Air 11/09/17 08:52 77 137/93 11/09/17 08:00 77 11/09/17 08:00 97.3 77 18 137/93 (108) 98 97.3 11/09/17 04:00 97.5 66 19 139/81 (100) 98 97.5 11/09/17 04:00 71 11/09/17 00:00 74 11/09/17 00:00 97.9 73 20 141/89 (106) 98 97.9 11/08/17 21:00 Room Air 11/08/17 20:45 65 138/96 11/08/17 20:00 97.5 65 18 138/96 (110) 97 97.5 11/08/17 20:00 67 11/08/17 16:35 Room Air 11/08/17 16:21 61 11/08/17 16:00 97.2 73 19 113/74 100 Room Air 97.2 11/08/17 15:33 97.2 73 19 113/74 100 Room Air 97.2 11/08/17 13:57 97.2 73 19 113/74 100 Room Air 97.2 11/08/17 13:48 97.2 76 16 120/80 97 Room Air 97.2 Intake and Output 11/08/17 11/09/17 19:00 07:00 Intake Total 120 ml Output Total 0 ml Balance 0 ml 120 ml Intake Oral 120 ml Output Urine Total 0 ml # Voids 1 3 Laboratory Tests Test 11/08/17 14:10 11/08/17 15:30 11/09/17 05:50 White Blood Count 4.5 K/UL (4.8-10.8) L 3.1 K/UL (4.8-10.8) L Red Blood Count 4.91 M/UL (4.70-6.10) 4.71 M/UL (4.70-6.10) Hemoglobin 13.9 G/DL (14.2-18.0) L 13.5 G/DL (14.2-18.0) L Hematocrit 42.6 % (42.0-52.0) 40.8 % (42.0-52.0) L Mean Corpuscular Volume 87 FL (80-99) 87 FL (80-99) Mean Corpuscular Hemoglobin 28.3 PG (27.0-31.0) 28.7 PG (27.0-31.0) Mean Corpuscular Hemoglobin Concent 32.6 G/DL (32.0-36.0) 33.1 G/DL (32.0-36.0) Red Cell Distribution Width 11.9 % (11.6-14.8) 11.6 % (11.6-14.8) Platelet Count 244 K/UL (150-450) 173 K/UL (150-450) Mean Platelet Volume 6.3 FL (6.5-10.1) L 6.1 FL (6.5-10.1) L Neutrophils (%) (Auto) 49.0 % (45.0-75.0) % (45.0-75.0) Lymphocytes (%) (Auto) 39.0 % (20.0-45.0) % (20.0-45.0) Monocytes (%) (Auto) 8.6 % (1.0-10.0) % (1.0-10.0) Eosinophils (%) (Auto) 2.3 % (0.0-3.0) % (0.0-3.0) Basophils (%) (Auto) 1.1 % (0.0-2.0) % (0.0-2.0) Sodium Level 142 MMOL/L (136-145) 142 MMOL/L (136-145) Potassium Level 4.2 MMOL/L (3.5-5.1) 3.6 MMOL/L (3.5-5.1) Chloride Level 105 MMOL/L (98-107) 107 MMOL/L (98-107) Carbon Dioxide Level 27 MMOL/L (21-32) 28 MMOL/L (21-32) Anion Gap 10 mmol/L (5-15) 7 mmol/L (5-15) Blood Urea Nitrogen 11 mg/dL (7-18) 10 mg/dL (7-18) Creatinine 0.9 MG/DL (0.55-1.30) 0.9 MG/DL (0.55-1.30) Estimat Glomerular Filtration Rate mL/min (>60) mL/min (>60) Glucose Level 96 MG/DL (74-106) 98 MG/DL (74-106) Calcium Level 9.3 MG/DL (8.5-10.1) 9.4 MG/DL (8.5-10.1) Total Bilirubin 0.6 MG/DL (0.2-1.0) 0.7 MG/DL (0.2-1.0) Aspartate Amino Transf (AST/SGOT) 34 U/L (15-37) 21 U/L (15-37) Alanine Aminotransferase (ALT/SGPT) 31 U/L (12-78) 29 U/L (12-78) Alkaline Phosphatase 62 U/L (46-116) 57 U/L (46-116) Total Creatine Kinase 132 U/L (26-308) Creatine Kinase MB 0.5 NG/ML (0.0-3.6) Creatine Kinase MB Relative Index 0.3 Troponin I 0.003 ng/mL (0.000-0.056) Pro-B-Type Natriuretic Peptide 31 pg/mL (0-125) Total Protein 8.0 G/DL (6.4-8.2) 7.2 G/DL (6.4-8.2) Albumin 3.7 G/DL (3.4-5.0) 3.4 G/DL (3.4-5.0) Globulin 4.3 g/dL 3.8 g/dL Albumin/Globulin Ratio 0.9 (1.0-2.7) L 0.9 (1.0-2.7) L Lipase 1387 U/L (73-393) H Urine Color Malinda Urine Appearance Clear Urine pH 5 (4.5-8.0) Urine Specific [place] 1.015 (1.005-1.035) Urine Protein Negative (NEGATIVE) Urine Glucose (UA) Negative (NEGATIVE) Urine Ketones Negative (NEGATIVE) Urine Blood Negative (NEGATIVE) Urine Nitrite Negative (NEGATIVE) Urine Bilirubin Negative (NEGATIVE) Urine Ictotest Negative (NEGATIVE) Urine Urobilinogen 1 MG/DL (0.0-1.0) H Urine Leukocyte Esterase Negative (NEGATIVE) Differential Total Cells Counted 100 Neutrophils % (Manual) 75 % (45-75) Lymphocytes % (Manual) 16 % (20-45) L Monocytes % (Manual) 8 % (1-10) Eosinophils % (Manual) 1 % (0-3) Basophils % (Manual) 0 % (0-2) Band Neutrophils 0 % (0-8) Platelet Estimate Adequate Platelet Morphology Normal Red Blood Cell Morphology Normal Triglycerides Level 58 MG/DL (30-150) Cholesterol Level 128 MG/DL (< 200) LDL Cholesterol 64 mg/dL (<100) HDL Cholesterol 57 MG/DL (40-60) Cholesterol/HDL Ratio 2.2 (3.3-4.4) L Height (Feet): 6 Weight (Pounds): 117 Medications Current Medications Medications (Trade) Dose Ordered Sig/Joao Route PRN Reason Start Time Stop Time Status Last Admin Dose Admin Acetaminophen (Tylenol) 650 mg Q4H PRN ORAL T>100.5 11/08/17 18:30 12/08/17 18:29 Al Hydroxide/Mg Hydroxide (Mylanta II) 30 ml Q6H PRN ORAL dyspepsia 11/08/17 18:30 12/08/17 18:29 Dextrose (Dextrose 50%) 25 ml Q30M PRN IV Hypoglycemia 11/08/17 18:30 12/08/17 18:24 Dextrose (Dextrose 50%) 50 ml Q30M PRN IV hypoglycemia 11/08/17 18:30 12/08/17 18:29 Gabapentin (Neurontin) 300 mg THREE TIMES A DAY ORAL 11/09/17 09:00 12/09/17 08:59 11/09/17 08:52 Heparin Sodium (Porcine) (Heparin 5000 units/ml) 5,000 units EVERY 12 HOURS SUBQ 11/08/17 21:00 12/08/17 20:59 11/09/17 08:57 Insulin Aspart (NovoLOG) BEFORE MEALS AND HS SUBQ 11/08/17 21:00 12/08/17 20:59 Lorazepam (Ativan 2mg/ml 1ml) 0.5 mg Q4H PRN IV For Anxiety 11/08/17 18:30 11/15/17 18:29 Metoprolol Tartrate (Lopressor) 25 mg EVERY 12 HOURS ORAL 11/08/17 21:00 12/08/17 20:59 11/09/17 08:52 Morphine Sulfate (Morphine Sulfate) 1 mg Q4H PRN IVP PAIN 4-10 11/08/17 18:30 11/15/17 18:29 Ondansetron HCl (Zofran) 4 mg Q6H PRN IVP Nausea & Vomiting 11/08/17 18:30 12/08/17 18:29 Paroxetine HCl (Paxil) 40 mg DAILY ORAL 11/09/17 09:00 12/09/17 08:59 11/09/17 08:52 Polyethylene Glycol (Miralax) 17 gm HSPRN PRN ORAL Constipation 11/08/17 21:00 12/08/17 20:59 Quetiapine Fumarate (SEROquel) 300 mg Q12HR ORAL 11/08/17 21:00 12/08/17 20:59 11/09/17 08:52 Zolpidem Tartrate (Ambien) 5 mg HSPRN PRN ORAL Insomnia 11/08/17 21:00 11/15/17 20:59 Assessment/Plan Problem List: (1) Acute encephalopathy ICD Codes: G93.40 - Encephalopathy, unspecified SNOMED: 93415878, 492875041 (2) Diabetes mellitus ICD Codes: E11.9 - Type 2 diabetes mellitus without complications SNOMED: 17815781 (3) Psychosis ICD Codes: F29 - Unspecified psychosis not due to a substance or known physiological condition SNOMED: 51792257 (4) History of asthma ICD Codes: Z87.09 - Personal history of other diseases of the respiratory system SNOMED: 673151339 Assessment/Plan MRI brain echo, cardiac w/u sliding scale pt/ot dvt prophylaxis Mustapha Naqvi MD Nov 09, 2017 11:17
[2017-11-09 12:00] VITALS: BP 130/76
--- NOTE | 2017-11-09 12:09 | Internal Med Progress Note ---
Subjective Date of Service: Nov 09, 2017 Physician Name Raymon Cunha Attending Physician Elijah Frederick MD Current Medications Medications (Trade) Dose Ordered Sig/Joao Route PRN Reason Start Time Stop Time Status Last Admin Dose Admin Acetaminophen (Tylenol) 650 mg Q4H PRN ORAL T>100.5 11/08/17 18:30 12/08/17 18:29 Al Hydroxide/Mg Hydroxide (Mylanta II) 30 ml Q6H PRN ORAL dyspepsia 11/08/17 18:30 12/08/17 18:29 Dextrose (Dextrose 50%) 25 ml Q30M PRN IV Hypoglycemia 11/08/17 18:30 12/08/17 18:24 Dextrose (Dextrose 50%) 50 ml Q30M PRN IV hypoglycemia 11/08/17 18:30 12/08/17 18:29 Gabapentin (Neurontin) 300 mg THREE TIMES A DAY ORAL 11/09/17 09:00 12/09/17 08:59 11/09/17 12:05 Heparin Sodium (Porcine) (Heparin 5000 units/ml) 5,000 units EVERY 12 HOURS SUBQ 11/08/17 21:00 12/08/17 20:59 11/09/17 08:57 Insulin Aspart (NovoLOG) BEFORE MEALS AND HS SUBQ 11/08/17 21:00 12/08/17 20:59 11/09/17 12:06 Lorazepam (Ativan 2mg/ml 1ml) 0.5 mg Q4H PRN IV For Anxiety 11/08/17 18:30 11/15/17 18:29 Metoprolol Tartrate (Lopressor) 25 mg EVERY 12 HOURS ORAL 11/08/17 21:00 12/08/17 20:59 11/09/17 08:52 Morphine Sulfate (Morphine Sulfate) 1 mg Q4H PRN IVP PAIN 4-10 11/08/17 18:30 11/15/17 18:29 Ondansetron HCl (Zofran) 4 mg Q6H PRN IVP Nausea & Vomiting 11/08/17 18:30 12/08/17 18:29 Paroxetine HCl (Paxil) 40 mg DAILY ORAL 11/09/17 09:00 12/09/17 08:59 11/09/17 08:52 Polyethylene Glycol (Miralax) 17 gm HSPRN PRN ORAL Constipation 11/08/17 21:00 11/1/18 20:59 Quetiapine Fumarate (SEROquel) 300 mg Q12HR ORAL 11/08/17 21:00 12/08/17 20:59 11/09/17 08:52 Zolpidem Tartrate (Ambien) 5 mg HSPRN PRN ORAL Insomnia 11/08/17 21:00 11/15/17 20:59 Allergies: Coded Allergies: No Known Allergies (Unverified , 08/28/16) ROS Limited/Unobtainable: Yes Subjective 72 YO M admitted with syncope. Cover for Int Med-Dr Frederick Objective Last Vital Signs Date Time Temp Pulse Resp B/P (MAP) Pulse Ox O2 Delivery O2 Flow Rate FiO2 11/09/17 09:00 Room Air 11/09/17 08:52 77 137/93 11/09/17 08:00 97.3 18 98 97.3 General Appearance: cachetic, thin EENT: PERRL/EOMI, normal ENT inspection, TMs normal Neck: non-tender, normal alignment, supple, normal inspection Cardiovascular: normal peripheral pulses, normal rate, regular rhythm, no gallop/murmur, no JVD Respiratory/Chest: chest wall non-tender, lungs clear, normal breath sounds, no respiratory distress, no accessory muscle use Abdomen: normal bowel sounds, non tender, soft, no organomegaly, no mass Extremities: normal range of motion, non-tender Neurologic: phlebotomy services representative II-XII grossly normal, no motor/sensory deficits Skin: normal pigmentation, warm/dry Laboratory Tests Test 11/08/17 14:10 11/08/17 15:30 11/09/17 05:50 White Blood Count 4.5 K/UL (4.8-10.8) L 3.1 K/UL (4.8-10.8) L Red Blood Count 4.91 M/UL (4.70-6.10) 4.71 M/UL (4.70-6.10) Hemoglobin 13.9 G/DL (14.2-18.0) L 13.5 G/DL (14.2-18.0) L Hematocrit 42.6 % (42.0-52.0) 40.8 % (42.0-52.0) L Mean Corpuscular Volume 87 FL (80-99) 87 FL (80-99) Mean Corpuscular Hemoglobin 28.3 PG (27.0-31.0) 28.7 PG (27.0-31.0) Mean Corpuscular Hemoglobin Concent 32.6 G/DL (32.0-36.0) 33.1 G/DL (32.0-36.0) Red Cell Distribution Width 11.9 % (11.6-14.8) 11.6 % (11.6-14.8) Platelet Count 244 K/UL (150-450) 173 K/UL (150-450) Mean Platelet Volume 6.3 FL (6.5-10.1) L 6.1 FL (6.5-10.1) L Neutrophils (%) (Auto) 49.0 % (45.0-75.0) % (45.0-75.0) Lymphocytes (%) (Auto) 39.0 % (20.0-45.0) % (20.0-45.0) Monocytes (%) (Auto) 8.6 % (1.0-10.0) % (1.0-10.0) Eosinophils (%) (Auto) 2.3 % (0.0-3.0) % (0.0-3.0) Basophils (%) (Auto) 1.1 % (0.0-2.0) % (0.0-2.0) Sodium Level 142 MMOL/L (136-145) 142 MMOL/L (136-145) Potassium Level 4.2 MMOL/L (3.5-5.1) 3.6 MMOL/L (3.5-5.1) Chloride Level 105 MMOL/L (98-107) 107 MMOL/L (98-107) Carbon Dioxide Level 27 MMOL/L (21-32) 28 MMOL/L (21-32) Anion Gap 10 mmol/L (5-15) 7 mmol/L (5-15) Blood Urea Nitrogen 11 mg/dL (7-18) 10 mg/dL (7-18) Creatinine 0.9 MG/DL (0.55-1.30) 0.9 MG/DL (0.55-1.30) Estimat Glomerular Filtration Rate mL/min (>60) mL/min (>60) Glucose Level 96 MG/DL (74-106) 98 MG/DL (74-106) Calcium Level 9.3 MG/DL (8.5-10.1) 9.4 MG/DL (8.5-10.1) Total Bilirubin 0.6 MG/DL (0.2-1.0) 0.7 MG/DL (0.2-1.0) Aspartate Amino Transf (AST/SGOT) 34 U/L (15-37) 21 U/L (15-37) Alanine Aminotransferase (ALT/SGPT) 31 U/L (12-78) 29 U/L (12-78) Alkaline Phosphatase 62 U/L (46-116) 57 U/L (46-116) Total Creatine Kinase 132 U/L (26-308) Creatine Kinase MB 0.5 NG/ML (0.0-3.6) Creatine Kinase MB Relative Index 0.3 Troponin I 0.003 ng/mL (0.000-0.056) Pro-B-Type Natriuretic Peptide 31 pg/mL (0-125) Total Protein 8.0 G/DL (6.4-8.2) 7.2 G/DL (6.4-8.2) Albumin 3.7 G/DL (3.4-5.0) 3.4 G/DL (3.4-5.0) Globulin 4.3 g/dL 3.8 g/dL Albumin/Globulin Ratio 0.9 (1.0-2.7) L 0.9 (1.0-2.7) L Lipase 1387 U/L (73-393) H Urine Color Malinda Urine Appearance Clear Urine pH 5 (4.5-8.0) Urine Specific [place] 1.015 (1.005-1.035) Urine Protein Negative (NEGATIVE) Urine Glucose (UA) Negative (NEGATIVE) Urine Ketones Negative (NEGATIVE) Urine Blood Negative (NEGATIVE) Urine Nitrite Negative (NEGATIVE) Urine Bilirubin Negative (NEGATIVE) Urine Ictotest Negative (NEGATIVE) Urine Urobilinogen 1 MG/DL (0.0-1.0) H Urine Leukocyte Esterase Negative (NEGATIVE) Differential Total Cells Counted 100 Neutrophils % (Manual) 75 % (45-75) Lymphocytes % (Manual) 16 % (20-45) L Monocytes % (Manual) 8 % (1-10) Eosinophils % (Manual) 1 % (0-3) Basophils % (Manual) 0 % (0-2) Band Neutrophils 0 % (0-8) Platelet Estimate Adequate Platelet Morphology Normal Red Blood Cell Morphology Normal Triglycerides Level 58 MG/DL (30-150) Cholesterol Level 128 MG/DL (< 200) LDL Cholesterol 64 mg/dL (<100) HDL Cholesterol 57 MG/DL (40-60) Cholesterol/HDL Ratio 2.2 (3.3-4.4) L Intake and Output 11/08/17 11/09/17 19:00 07:00 Intake Total 120 ml Output Total 0 ml Balance 0 ml 120 ml Intake Oral 120 ml Output Urine Total 0 ml # Voids 1 3 Assessment/Plan Problem List: (1) Altered mental status (2) Diabetes mellitus, type II Assessment & Plan: Stable. Continue novolog sliding scale (3) HTN (hypertension) Assessment & Plan: Stable. Continue lopressor (4) Hypercholesterolemia (5) Gastroesophageal reflux disease (6) Paranoid schizophrenia Assessment & Plan: continue seroquel per Psych (7) Syncope Assessment & Plan: await MRI brain (8) Acute encephalopathy Status: not improved Raymon Cunha MD Nov 09, 2017 12:09
[2017-11-09] MEDS ORDERED: LORazepam Inj 2mg/ml 1ml IV SCH (12:41)
--- NOTE | 2017-11-09 12:46 | Consultation ---
History of Present Illness General Date patient seen: Nov 09, 2017 Chief Complaint: Syncope Present Illness HPI the pt is a 72 yo male with mmp. The patient presents emergency department today with syncopal event. The pt has been uncooperative and agitated easily. The pt is disorganized. Allergies: Coded Allergies: No Known Allergies (Unverified , 08/28/16) Medication History Scheduled Folic Acid* (Folic Acid*), 1 MG ORAL DAILY, (Reported) Furosemide* (Lasix*), 20 MG ORAL DAILY, (Reported) Gabapentin* (Gabapentin*), 300 MG ORAL THREE TIMES A DAY, (Reported) Insulin Regular, Human (Humulin R), Unknown Dose SUBQ BEFORE MEALS AND HS, ( Reported) Metformin Hcl* (Metformin Hcl*), 500 MG ORAL TWICE A DAY, (Reported) Metoprolol Tartrate* (Metoprolol Tartrate*), 25 MG ORAL EVERY 12 HOURS, ( Reported) Multivitamin With Minerals (Multivitamins With Minerals*), 1 TAB ORAL DAILY, ( Reported) Paroxetine Hcl* (Paxil*), 40 MG PO DAILY, (Reported) Quetiapine Fumarate* (Seroquel*), 300 MG ORAL TWICE A DAY, (Reported) Simvastatin (Zocor), 40 MG ORAL BEDTIME, (Reported) [Lidocaine Gel 0.5%], 1 TOPIC DAILY, (Reported) Scheduled PRN Acetaminophen* (Acetaminophen 325MG Tablet*), 650 MG ORAL Q4H PRN for Mild Pain/ Temp > 100.5, (Reported) Loperamide HCl (Loperamide), 2 MG ORAL Q4H PRN for loose stool, (Reported) Magnesium Hydroxide* (Milk Of Magnesia*), 30 ML ORAL DAILY PRN for Constipation, (Reported) Metoclopramide Hcl* (Reglan*), 10 MG ORAL EVERY 8 HOURS PRN for GERD, (Reported) [Mylanta], 30 ML ORAL EVERY 4 HOURS PRN for GI distress, (Reported) Miscellaneous Medications Glucagon,Human Recombinant (Glucagen), 1 MG IJ, (Reported) Patient History Limited by: medical condition History Provided By: Patient, Medical Record Healthcare decision maker Patient Resuscitation status Full Code Advanced Directive on File Past Medical/Surgical History Past Medical/Surgical History: (1) Multiple injuries due to trauma (2) Fall (3) Arrhythmia (4) Pancreatitis (5) Diabetes mellitus (6) Psychosis (7) History of asthma (8) Acute encephalopathy (9) Gastroesophageal reflux disease (10) Diabetes mellitus, type II (11) Hypercholesterolemia (12) Paranoid schizophrenia (13) Syncope (14) Altered mental status (15) HTN (hypertension) Review of Systems Psychiatric: Reports: prior hx, anxiety, depressed feelings, hallucinations Physical Exam General Appearance: no apparent distress, alert Neurologic: oriented x 3, responsive Last 24 Hour Vital Signs Date Time Temp Pulse Resp B/P (MAP) Pulse Ox O2 Delivery O2 Flow Rate FiO2 11/09/17 09:00 Room Air 11/09/17 08:52 77 137/93 11/09/17 08:00 77 11/09/17 08:00 97.3 77 18 137/93 (108) 98 97.3 11/09/17 04:00 97.5 66 19 139/81 (100) 98 97.5 11/09/17 04:00 71 11/09/17 00:00 74 11/09/17 00:00 97.9 73 20 141/89 (106) 98 97.9 11/08/17 21:00 Room Air 11/08/17 20:45 65 138/96 11/08/17 20:00 97.5 65 18 138/96 (110) 97 97.5 11/08/17 20:00 67 11/08/17 16:35 Room Air 11/08/17 16:21 61 11/08/17 16:00 97.2 73 19 113/74 100 Room Air 97.2 11/08/17 15:33 97.2 73 19 113/74 100 Room Air 97.2 11/08/17 13:57 97.2 73 19 113/74 100 Room Air 97.2 11/08/17 13:48 97.2 76 16 120/80 97 Room Air 97.2 Intake and Output 11/08/17 11/09/17 19:00 07:00 Intake Total 120 ml Output Total 0 ml Balance 0 ml 120 ml Intake Oral 120 ml Output Urine Total 0 ml # Voids 1 3 Laboratory Tests Test 11/08/17 14:10 11/08/17 15:30 11/09/17 05:50 White Blood Count 4.5 K/UL (4.8-10.8) L 3.1 K/UL (4.8-10.8) L Red Blood Count 4.91 M/UL (4.70-6.10) 4.71 M/UL (4.70-6.10) Hemoglobin 13.9 G/DL (14.2-18.0) L 13.5 G/DL (14.2-18.0) L Hematocrit 42.6 % (42.0-52.0) 40.8 % (42.0-52.0) L Mean Corpuscular Volume 87 FL (80-99) 87 FL (80-99) Mean Corpuscular Hemoglobin 28.3 PG (27.0-31.0) 28.7 PG (27.0-31.0) Mean Corpuscular Hemoglobin Concent 32.6 G/DL (32.0-36.0) 33.1 G/DL (32.0-36.0) Red Cell Distribution Width 11.9 % (11.6-14.8) 11.6 % (11.6-14.8) Platelet Count 244 K/UL (150-450) 173 K/UL (150-450) Mean Platelet Volume 6.3 FL (6.5-10.1) L 6.1 FL (6.5-10.1) L Neutrophils (%) (Auto) 49.0 % (45.0-75.0) % (45.0-75.0) Lymphocytes (%) (Auto) 39.0 % (20.0-45.0) % (20.0-45.0) Monocytes (%) (Auto) 8.6 % (1.0-10.0) % (1.0-10.0) Eosinophils (%) (Auto) 2.3 % (0.0-3.0) % (0.0-3.0) Basophils (%) (Auto) 1.1 % (0.0-2.0) % (0.0-2.0) Sodium Level 142 MMOL/L (136-145) 142 MMOL/L (136-145) Potassium Level 4.2 MMOL/L (3.5-5.1) 3.6 MMOL/L (3.5-5.1) Chloride Level 105 MMOL/L (98-107) 107 MMOL/L (98-107) Carbon Dioxide Level 27 MMOL/L (21-32) 28 MMOL/L (21-32) Anion Gap 10 mmol/L (5-15) 7 mmol/L (5-15) Blood Urea Nitrogen 11 mg/dL (7-18) 10 mg/dL (7-18) Creatinine 0.9 MG/DL (0.55-1.30) 0.9 MG/DL (0.55-1.30) Estimat Glomerular Filtration Rate mL/min (>60) mL/min (>60) Glucose Level 96 MG/DL (74-106) 98 MG/DL (74-106) Calcium Level 9.3 MG/DL (8.5-10.1) 9.4 MG/DL (8.5-10.1) Total Bilirubin 0.6 MG/DL (0.2-1.0) 0.7 MG/DL (0.2-1.0) Aspartate Amino Transf (AST/SGOT) 34 U/L (15-37) 21 U/L (15-37) Alanine Aminotransferase (ALT/SGPT) 31 U/L (12-78) 29 U/L (12-78) Alkaline Phosphatase 62 U/L (46-116) 57 U/L (46-116) Total Creatine Kinase 132 U/L (26-308) Creatine Kinase MB 0.5 NG/ML (0.0-3.6) Creatine Kinase MB Relative Index 0.3 Troponin I 0.003 ng/mL (0.000-0.056) Pro-B-Type Natriuretic Peptide 31 pg/mL (0-125) Total Protein 8.0 G/DL (6.4-8.2) 7.2 G/DL (6.4-8.2) Albumin 3.7 G/DL (3.4-5.0) 3.4 G/DL (3.4-5.0) Globulin 4.3 g/dL 3.8 g/dL Albumin/Globulin Ratio 0.9 (1.0-2.7) L 0.9 (1.0-2.7) L Lipase 1387 U/L (73-393) H Urine Color [place] Urine Appearance Clear Urine pH 5 (4.5-8.0) Urine Specific [place] 1.015 (1.005-1.035) Urine Protein Negative (NEGATIVE) Urine Glucose (UA) Negative (NEGATIVE) Urine Ketones Negative (NEGATIVE) Urine Blood Negative (NEGATIVE) Urine Nitrite Negative (NEGATIVE) Urine Bilirubin Negative (NEGATIVE) Urine Ictotest Negative (NEGATIVE) Urine Urobilinogen 1 MG/DL (0.0-1.0) H Urine Leukocyte Esterase Negative (NEGATIVE) Differential Total Cells Counted 100 Neutrophils % (Manual) 75 % (45-75) Lymphocytes % (Manual) 16 % (20-45) L Monocytes % (Manual) 8 % (1-10) Eosinophils % (Manual) 1 % (0-3) Basophils % (Manual) 0 % (0-2) Band Neutrophils 0 % (0-8) Platelet Estimate Adequate Platelet Morphology Normal Red Blood Cell Morphology Normal Triglycerides Level 58 MG/DL (30-150) Cholesterol Level 128 MG/DL (< 200) LDL Cholesterol 64 mg/dL (<100) HDL Cholesterol 57 MG/DL (40-60) Cholesterol/HDL Ratio 2.2 (3.3-4.4) L Height (Feet): 6 Weight (Pounds): 117 Medications Current Medications Medications (Trade) Dose Ordered Sig/Joao Route PRN Reason Start Time Stop Time Status Last Admin Dose Admin Acetaminophen (Tylenol) 650 mg Q4H PRN ORAL T>100.5 11/08/17 18:30 12/08/17 18:29 Al Hydroxide/Mg Hydroxide (Mylanta II) 30 ml Q6H PRN ORAL dyspepsia 11/08/17 18:30 11 18:29 Dextrose (Dextrose 50%) 25 ml Q30M PRN IV Hypoglycemia 11/08/17 18:30 12/08/17 18:24 Dextrose (Dextrose 50%) 50 ml Q30M PRN IV hypoglycemia 11/08/17 18:30 12/08/17 18:29 Gabapentin (Neurontin) 300 mg THREE TIMES A DAY ORAL 11/09/17 09:00 12/09/17 08:59 11/09/17 12:05 Heparin Sodium (Porcine) (Heparin 5000 units/ml) 5,000 units EVERY 12 HOURS SUBQ 11/08/17 21:00 12/08/17 20:59 11/09/17 08:57 Insulin Aspart (NovoLOG) BEFORE MEALS AND HS SUBQ 11/08/17 21:00 12/08/17 20:59 11/09/17 12:06 Lorazepam (Ativan 2mg/ml 1ml) 0.5 mg Q4H PRN IV For Anxiety 11/08/17 18:30 11/15/17 18:29 Metoprolol Tartrate (Lopressor) 25 mg EVERY 12 HOURS ORAL 11/08/17 21:00 12/08/17 20:59 11/09/17 08:52 Morphine Sulfate (Morphine Sulfate) 1 mg Q4H PRN IVP PAIN 4-10 11/08/17 18:30 11/15/17 18:29 Ondansetron HCl (Zofran) 4 mg Q6H PRN IVP Nausea & Vomiting 11/08/17 18:30 12/08/17 18:29 Paroxetine HCl (Paxil) 40 mg DAILY ORAL 11/09/17 09:00 12/09/17 08:59 11/09/17 08:52 Polyethylene Glycol (Miralax) 17 gm HSPRN PRN ORAL Constipation 11/08/17 21:00 12/08/17 20:59 Quetiapine Fumarate (SEROquel) 300 mg Q12HR ORAL 11/08/17 21:00 12/08/17 20:59 11/09/17 08:52 Zolpidem Tartrate (Ambien) 5 mg HSPRN PRN ORAL Insomnia 11/08/17 21:00 11/15/17 20:59 Assessment/Plan Assessment/Plan schizoaffective d/o agitation seroquel 600mg qhs paxil 40mg qhs Cole San MD Nov 09, 2017 12:46
--- NOTE | 2017-11-09 13:25 | Cardiology Report ---
APPROVED REPORT EXAM: Two-dimensional and M-mode echocardiogram with Doppler and color Doppler. INDICATION LV FUNCTION M-Mode DIMENSIONS IVSd1.4 (0.7-1.1cm)Left Atrium (MM)3.8 (1.6-4.0cm) LVDd4.6 (3.5-5.6cm)Aortic Root4.4 (2.0-3.7cm) PWd1.7 (0.7-1.1cm)Aortic Cusp Exc.1.8 (1.5-2.0cm) IVSs1.6 cm LVDs2.9 (2.5-4.0cm) PWs2.3 cm views Normal left ventricular chamber size, systolic function and wall motion as well visualized. Left ventricular ejection fraction estimated to be 55-60%. No evidence of left ventricular hypertrophy . No evidence of pericardial effusion. All other cardiac chamber sizes are within normal limits. Focal aortic valve sclerosis with adequate cusp excursion. Thickened mitral valve leaflets with normal excursion. Heavy mitral annulus calcification. Pulmonic valve not well visualized. Normal tricuspid valve structure. IVC at normal size with physiologic collapse. avlve leaflets aere poorly visualized. A color flow and spectral Doppler study was performed and revealed: No aortic insufficiency . Trace mitral regurgitation. Mitral diastolic velocities suggest reduced left ventricular relaxation c/w mild LV diastolic dysfunction (Grade I ). Trace tricuspid regurgitation. Tricuspid systolic velocities suggests peak right ventricular systolic pressure of 20 mmHg.
--- NOTE | 2017-11-09 14:45 | Diagnostic Imaging Report ---
Indication: Altered mental status Technique: sagittal T1 fast spin echo, axial T1 FLAIR, axial T2 FLAIR, axial T2 FS PROPELLER, axial T2* GRE, axial diffusion weighted images. ADC and exponential ADC maps generated Comparison: Reference made to head CT dated 12/09/2016 Findings: No abnormal areas of restricted diffusion to suggest acute infarction. No acute hemorrhage or edema. No mass effect nor midline shift. There is marked age-related enlargement of the ventricles and extra axial CSF spaces. There is periventricular deep white matter high T2 signal, consistent with chronic ischemic changes. There is a patent cavum septum pellucidum. The vascular flow voids are preserved. Visualized orbits and sinuses are unremarkable. Impression: Chronic and age-related changes, as described Negative for acute intracranial bleed, mass effect, or infarct.
[2017-11-09 16:00] VITALS: BP 129/83
--- NOTE | 2017-11-09 16:09 | Diagnostic Imaging Report ---
APPROVED REPORT CPT Code: 68054 Present Symptoms Comments: Swelling. BILATERAL: Imaging reveals a patent deep venous system bilaterally. There is no evidence of thrombus within the femoral, popliteal or tibial segments. The greater saphenous veins are also within normal limits. Doppler indicates normal spontaneous flow within these segments.
--- NOTE | 2017-11-09 17:30 | History and Physical Report ---
CHIEF COMPLAINT: The patient is a 72-year-old male, who presented with chief complaint of syncopal episode. HISTORY OF PRESENT ILLNESS: The patient himself is somewhat confused. The patient is unable to contribute much to the history and physical. Much of the history and physical is obtained from the patient's chart. The patient is a resident of [facility]. According to staff at [facility], the patient has had increased falls for the last couple of days. The patient had a syncopal episode this morning. The patient was transported to [facility]. The patient is admitted for syncopal episode to rule out acute coronary syndrome versus acute cerebrovascular accident. REVIEW OF SYSTEMS: Unable to assess secondary to patient's mental status. PAST MEDICAL HISTORY: Significant for: 1. Diabetes type 2. 2. Hypertension. 3. Hypercholesteremia. 4. Gastroesophageal reflux disease. 5. Paranoid schizophrenia. PAST SURGICAL HISTORY: Unknown. CURRENT MEDICATIONS: 1. Folic acid 1 mg p.o. daily. 2. Furosemide 20 mg p.o. daily. 3. Gabapentin 300 mg p.o. three times daily. 4. Metformin 500 mg p.o. twice daily. 5. Metoprolol 25 mg p.o. twice daily. 6. Reglan 10 mg p.o. three times daily. 7. Paxil 20 mg one-half tablet p.o. daily. 8. Seroquel 100 mg p.o. twice daily. 9. Simvastatin 40 mg p.o. daily. ALLERGIES: No known drug allergies. SOCIAL HISTORY: The patient is a resident of [facility]. The patient denies tobacco or alcohol use. PHYSICAL EXAMINATION: VITAL SIGNS: Temperature 97.2, respirations 16, pulse 76, and blood pressure 120/80. GENERAL: The patient is a well-developed and well-nourished male, in no apparent distress. HEENT: Eyes, pupils are equal and responsive to light and accommodation. Extraocular movements are intact. NECK: Supple without lymphadenopathy. CHEST: Lungs are clear to auscultation bilaterally without wheezes or rales. CARDIOVASCULAR: Regular rhythm and rate. S1 and S2 are normal without murmurs, rubs, or gallops. ABDOMEN: Soft, nontender, and nondistended. Positive bowel sounds. No evidence of hepatosplenomegaly. Currently, no rebound or guarding noted. EXTREMITIES: Negative for clubbing, cyanosis, or edema. RECTAL/GENITAL: Refused. NEUROLOGIC: Cranial nerves II through XII are grossly intact without focal deficits. Motor strength is 5/5 bilaterally. Deep tendon reflexes are 2+ plantar. LABORATORY STUDIES: WBC 4.5, hemoglobin 13.9, hematocrit 42.6, and platelets 244,000. Sodium 142, potassium 4.2, chloride 105, CO2 27, BUN 11, and creatinine 0.9. Glucose 96. Troponin 0.003. Lipase elevated at 1387. ASSESSMENT: This is a 72-year-old male with: 1. Syncopal episode. 2. Altered mental status. 3. Diabetes type 2. 4. Hypertension. 5. Hypercholesterolemia. 6. Gastroesophageal reflux disease. 7. Paranoid schizophrenia. TREATMENT: 1. Syncope/altered mental status. This may be secondary to cerebrovascular accident versus acute myocardial infarction. A Neurology consultation has been obtained with Dr. Valentin Smalls. An MRI of the brain is pending. Carotid duplex and Dopplers are pending. We will follow recommendation of Neurology. 2. Diabetes type 2. A NovoLog sliding scale has been instituted. 3. Hypertension. Continue metoprolol as above. 4. Hypercholesterolemia. Continue simvastatin as above. 5. Paranoid schizophrenia. Raymon Cunha M.D. DR: SUMI JOB#: [id number] CC:
[2017-11-09 20:00] VITALS: BP 119/76
[2017-11-10] VITALS: BP 122/65
[2017-11-10 04:00] VITALS: BP 119/73
[2017-11-10] MEDS: NovoLOG Insulin Flexpen SUBQ SCH ×4 (06:09→20:52)
[2017-11-10 07:30] LABS: HEMATOCRIT 39.1 % (42.0-52.0); HEMOGLOBIN 13.1 G/DL (14.2-18.0); MEAN CORPUSCULAR VOLUME 86 FL (80-99); PLATELET COUNT 195 K/UL (150-450); RED BLOOD COUNT 4.52 M/UL (4.70-6.10); RED CELL DISTRIBUTION WIDTH 11.8 % (11.6-14.8); WHITE BLOOD COUNT 2.7 K/UL (4.8-10.8)
[2017-11-10 07:43] LABS: ANION GAP 9 mmol/L (5-15); BLOOD UREA NITROGEN 11 mg/dL (7-18); CALCIUM 9.1 MG/DL (8.5-10.1); CARBON DIOXIDE 27 MMOL/L (21-32); CHLORIDE 108 MMOL/L (98-107); POTASSIUM 3.9 MMOL/L (3.5-5.1); SODIUM 144 MMOL/L (136-145)
[2017-11-10 08:00] VITALS: BP 128/99
[2017-11-10] MEDS: Metoprolol 25mg tab ORAL SCH ×2 (09:48→20:46)
[2017-11-10] MEDS: Heparin 5000 units/ml inj SUBQ SCH ×2 (09:50→20:43)
[2017-11-10 12:00] VITALS: BP 131/72
--- NOTE | 2017-11-10 12:07 | Diagnostic Imaging Report ---
Indication: Abdominal pain Technique: Continuous helical transaxial imaging of the abdomen and pelvis was obtained from the lung bases to the pubic symphysis during intravenous contrast administration. Coronal 2-D reformats were also obtained. Study obtained in a Siemens sensation [address] Automatic Exposure Control was utilized. Total Dose length Product (DLP): 2688.[address] Dose Index Volume (CTDIvol): 21.41,35.96 mGy Comparison: None Findings: The lung bases are essentially clear. The liver is hypodense consistent with fatty infiltration. There is a small hiatal hernia. Spleen is unremarkable. The pancreas is unremarkable. There is no adrenal mass. Gallbladder is unremarkable. Kidneys appear unremarkable. There is no hydronephrosis or renal stones identified. There is some breathing motion on venous phase images. The appendix is normal. There are diverticula in the colon. No definite diverticulitis appreciated. Urinary bladder is unremarkable. Aortoiliac calcifications are present. There is no free fluid or free air. There is a left inguinal hernia containing fat. There is a structure in the lower part of the left inguinal canal which may be part of the testis. This is not completely or adequately evaluated on the current study. IMPRESSION: Fatty liver. Diverticulosis of the colon. No definite diverticulitis. Atherosclerotic vascular disease Small umbilical hernia containing fat. Left inguinal hernia containing fat. Query undescended left testis not adequately evaluated on this study. The CT scanner at [facility] is accredited by the [employer] and the scans are performed using dose optimization techniques as appropriate to a performed exam including Automatic Exposure control.
--- NOTE | 2017-11-10 12:11 | Pulmonology Progress Note ---
Assessment/Plan Problems: (1) Pancreatitis (2) Acute encephalopathy (3) Diabetes mellitus (4) Psychosis (5) History of asthma Assessment/Plan repeat lipase and amylase Brain MRI reviewed pt/ot f/u electrolyte dvt prophylaxis Subjective ROS Limited/Unobtainable: No Constitutional: Reports: no symptoms HEENT: Repors: no symptoms Allergies: Coded Allergies: No Known Allergies (Unverified , 08/28/16) Objective Last 24 Hour Vital Signs Date Time Temp Pulse Resp B/P (MAP) Pulse Ox O2 Delivery O2 Flow Rate FiO2 11/10/17 11:28 Room Air 11/10/17 09:48 61 128/99 11/10/17 08:00 97.8 61 19 128/99 (109) 97 97.8 11/10/17 04:00 59 11/10/17 04:00 96.8 61 20 119/73 (88) 95 96.8 11/10/17 00:00 97.1 59 19 122/65 (84) 95 97.1 11/10/17 00:00 63 11/09/17 21:00 Room Air 11/09/17 21:00 65 119/76 11/09/17 20:00 96.4 65 20 119/76 (90) 96 96.4 11/09/17 20:00 63 11/09/17 16:00 97.3 60 18 129/83 (98) 98 97.3 11/09/17 15:11 61 Intake and Output 11/09/17 11/10/17 19:00 07:00 # Voids 1 2 General Appearance: WD/WN HEENT: normocephalic Respiratory/Chest: chest wall non-tender, lungs clear, chest wall tender Cardiovascular: normal peripheral pulses, normal rate Abdomen: normal bowel sounds, soft, non tender, no scars Skin: no ulcers 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 Complete 11/08/17 15:30 Rectum VRE Culture - Final NO VANCOMYCIN RESISTANT ENTEROCOCCUS ... Complete Laboratory Tests 11/10/17 05:45: White Blood Count 2.7L, Red Blood Count 4.52L, Hemoglobin 13.1L, Hematocrit 39.1L, Mean Corpuscular Volume 86, Mean Corpuscular Hemoglobin 28.9, Mean Corpuscular Hemoglobin Concent 33.5, Red Cell Distribution Width 11.8, Platelet Count 195, Mean Platelet Volume 6.0L, Neutrophils (%) (Auto) , Lymphocytes (%) ( Auto) , Monocytes (%) (Auto) , Eosinophils (%) (Auto) , Basophils (%) (Auto) , Differential Total Cells Counted 100, Neutrophils % (Manual) 33L, Lymphocytes % (Manual) 54H, Monocytes % (Manual) 11H, Eosinophils % (Manual) 1, Basophils % ( Manual) 1, Band Neutrophils 0, Platelet Estimate Adequate, Platelet Morphology Normal, Anisocytosis 1+, Sodium Level 144, Potassium Level 3.9, Chloride Level 108H, Carbon Dioxide Level 27, Anion Gap 9, Blood Urea Nitrogen 11, Creatinine 1.0, Estimat Glomerular Filtration Rate , Glucose Level 89, Calcium Level 9.1 Current Medications Medications (Trade) Dose Ordered Sig/Joao Route PRN Reason Start Time Stop Time Status Last Admin Dose Admin Acetaminophen (Tylenol) 650 mg Q4H PRN ORAL T>100.5 11/08/17 18:30 12/08/17 18:29 Al Hydroxide/Mg Hydroxide (Mylanta II) 30 ml Q6H PRN ORAL dyspepsia 11/08/17 18:30 12/08/17 18:29 Dextrose (Dextrose 50%) 25 ml Q30M PRN IV Hypoglycemia 11/08/17 18:30 12/08/17 18:24 Dextrose (Dextrose 50%) 50 ml Q30M PRN IV hypoglycemia 11/08/17 18:30 12/08/17 18:29 Gabapentin (Neurontin) 300 mg THREE TIMES A DAY ORAL 11/09/17 09:00 12/09/17 08:59 11/10/17 09:47 Heparin Sodium (Porcine) (Heparin 5000 units/ml) 5,000 units EVERY 12 HOURS SUBQ 11/08/17 21:00 12/08/17 20:59 11/10/17 09:50 Insulin Aspart (NovoLOG) BEFORE MEALS AND HS SUBQ 11/08/17 21:00 12/08/17 20:59 11/09/17 12:06 Lorazepam (Ativan 2mg/ml 1ml) 0.5 mg Q4H PRN IV For Anxiety 11/08/17 18:30 11/15/17 18:29 Metoprolol Tartrate (Lopressor) 25 mg EVERY 12 HOURS ORAL 11/08/17 21:00 12/08/17 20:59 11/10/17 09:48 Morphine Sulfate (Morphine Sulfate) 1 mg Q4H PRN IVP PAIN 4-10 11/08/17 18:30 11/15/17 18:29 Ondansetron HCl (Zofran) 4 mg Q6H PRN IVP Nausea & Vomiting 11/08/17 18:30 12/08/17 18:29 Paroxetine HCl (Paxil) 40 mg BEDTIME ORAL 11/09/17 21:00 12/09/17 20:59 Polyethylene Glycol (Miralax) 17 gm HSPRN PRN ORAL Constipation 11/08/17 21:00 12/08/17 20:59 Quetiapine Fumarate (SEROquel) 300 mg BEDTIME ORAL 11/09/17 21:00 12/09/17 20:59 Zolpidem Tartrate (Ambien) 5 mg HSPRN PRN ORAL Insomnia 11/08/17 21:00 11/15/17 20:59 Mustapha Naqvi MD Nov 10, 2017 12:11
[2017-11-10 16:00] VITALS: BP 124/75
--- NOTE | 2017-11-10 19:35 | Internal Med Progress Note ---
Subjective Date of Service: Nov 10, 2017 Physician Name Raymon Cunha Attending Physician Elijah Frederick MD Current Medications Medications (Trade) Dose Ordered Sig/Joao Route PRN Reason Start Time Stop Time Status Last Admin Dose Admin Acetaminophen (Tylenol) 650 mg Q4H PRN ORAL T>100.5 11/08/17 18:30 12/08/17 18:29 Al Hydroxide/Mg Hydroxide (Mylanta II) 30 ml Q6H PRN ORAL dyspepsia 11/08/17 18:30 12/08/17 18:29 Dextrose (Dextrose 50%) 25 ml Q30M PRN IV Hypoglycemia 11/08/17 18:30 12/08/17 18:24 Dextrose (Dextrose 50%) 50 ml Q30M PRN IV hypoglycemia 11/08/17 18:30 12/08/17 18:29 Gabapentin (Neurontin) 300 mg THREE TIMES A DAY ORAL 11/09/17 09:00 12/09/17 08:59 11/10/17 18:55 Heparin Sodium (Porcine) (Heparin 5000 units/ml) 5,000 units EVERY 12 HOURS SUBQ 11/08/17 21:00 12/08/17 20:59 11/10/17 09:50 Insulin Aspart (NovoLOG) BEFORE MEALS AND HS SUBQ 11/08/17 21:00 12/08/17 20:59 11/09/17 12:06 Lorazepam (Ativan 2mg/ml 1ml) 0.5 mg Q4H PRN IV For Anxiety 11/08/17 18:30 11/15/17 18:29 Metoprolol Tartrate (Lopressor) 25 mg EVERY 12 HOURS ORAL 11/08/17 21:00 12/08/17 20:59 11/10/17 09:48 Morphine Sulfate (Morphine Sulfate) 1 mg Q4H PRN IVP PAIN 4-10 11/08/17 18:30 11/15/17 18:29 Ondansetron HCl (Zofran) 4 mg Q6H PRN IVP Nausea & Vomiting 11/08/17 18:30 12/08/17 18:29 Paroxetine HCl (Paxil) 40 mg BEDTIME ORAL 11/09/17 21:00 12/09/17 20:59 Polyethylene Glycol (Miralax) 17 gm HSPRN PRN ORAL Constipation 11/08/17 21:00 12/08/17 20:59 Quetiapine Fumarate (SEROquel) 300 mg BEDTIME ORAL 11/09/17 21:00 12/09/17 20:59 Zolpidem Tartrate (Ambien) 5 mg HSPRN PRN ORAL Insomnia 11/08/17 21:00 11/15/17 20:59 Allergies: Coded Allergies: No Known Allergies (Unverified , 08/28/16) ROS Limited/Unobtainable: Yes Subjective 72 YO M admitted with syncope. Cover for Int Med-Dr Frederick Objective Last Vital Signs Date Time Temp Pulse Resp B/P (MAP) Pulse Ox O2 Delivery O2 Flow Rate FiO2 11/10/17 16:00 97.6 68 21 124/75 (91) 96 97.6 11/10/17 11:28 Room Air Laboratory Tests Test 11/10/17 05:45 White Blood Count 2.7 K/UL (4.8-10.8) L Red Blood Count 4.52 M/UL (4.70-6.10) L Hemoglobin 13.1 G/DL (14.2-18.0) L Hematocrit 39.1 % (42.0-52.0) L Mean Corpuscular Volume 86 FL (80-99) Mean Corpuscular Hemoglobin 28.9 PG (27.0-31.0) Mean Corpuscular Hemoglobin Concent 33.5 G/DL (32.0-36.0) Red Cell Distribution Width 11.8 % (11.6-14.8) Platelet Count 195 K/UL (150-450) Mean Platelet Volume 6.0 FL (6.5-10.1) L Neutrophils (%) (Auto) % (45.0-75.0) Lymphocytes (%) (Auto) % (20.0-45.0) Monocytes (%) (Auto) % (1.0-10.0) Eosinophils (%) (Auto) % (0.0-3.0) Basophils (%) (Auto) % (0.0-2.0) Differential Total Cells Counted 100 Neutrophils % (Manual) 33 % (45-75) L Lymphocytes % (Manual) 54 % (20-45) H Monocytes % (Manual) 11 % (1-10) H Eosinophils % (Manual) 1 % (0-3) Basophils % (Manual) 1 % (0-2) Band Neutrophils 0 % (0-8) Platelet Estimate Adequate Platelet Morphology Normal Anisocytosis 1+ Sodium Level 144 MMOL/L (136-145) Potassium Level 3.9 MMOL/L (3.5-5.1) Chloride Level 108 MMOL/L (98-107) H Carbon Dioxide Level 27 MMOL/L (21-32) Anion Gap 9 mmol/L (5-15) Blood Urea Nitrogen 11 mg/dL (7-18) Creatinine 1.0 MG/DL (0.55-1.30) Estimat Glomerular Filtration Rate mL/min (>60) Glucose Level 89 MG/DL (74-106) Calcium Level 9.1 MG/DL (8.5-10.1) Microbiology Date/Time Source Procedure Growth Status 11/08/17 15:30 Nasal Nares MRSA Culture - Final NO METHICILLIN RESISTANT STAPH AUREUS... Complete 11/08/17 15:30 Rectum VRE Culture - Final NO VANCOMYCIN RESISTANT ENTEROCOCCUS ... 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 Continue novolog sliding scale (3) HTN (hypertension) Assessment & Plan: Stable. Continue lopressor (4) Hypercholesterolemia (5) Gastroesophageal reflux disease (6) Paranoid schizophrenia Assessment & Plan: continue seroquel per Psych (7) Syncope Assessment & Plan: await MRI brain (8) Acute encephalopathy (9) Pancreatitis Assessment & Plan: See CT abdomen result Raymon Cunha MD Nov 10, 2017 19:35
[2017-11-10 20:00] VITALS: BP 106/69
[2017-11-10] MEDS ORDERED: Mylanta II UD 30ml ORAL PRN (20:30)
[2017-11-10] MEDS ORDERED: LORazepam Inj 2mg/ml 1ml IV PRN (20:30)
[2017-11-10] MEDS ORDERED: Morphine Sulfate 2mg/ml Inj IVP PRN (20:30)
[2017-11-10] MEDS ORDERED: Miralax 17gm pkt ORAL PRN (21:00)
[2017-11-10] MEDS ORDERED: PARoxetine 20mg tab ORAL SCH (21:00)
[2017-11-10] MEDS ORDERED: Zolpidem 5mg tab ORAL PRN (21:00)
--- NOTE | 2017-11-10 22:41 | General Progress Note ---
Assessment/Plan Status: stable, progressing Assessment/Plan schizoaffective d/o agitation seroquel 600mg qhs paxil 40mg qhs Subjective Date patient seen: Nov 10, 2017 Neurologic/Psychiatric: Reports: anxiety, depressed Allergies: Coded Allergies: No Known Allergies (Unverified , 08/28/16) Subjective less agitated Objective Last 24 Hour Vital Signs Date Time Temp Pulse Resp B/P (MAP) Pulse Ox O2 Delivery O2 Flow Rate FiO2 11/10/17 21:00 Room Air 11/10/17 20:46 91 106/69 11/10/17 20:00 98.2 71 18 106/69 (81) 100 98.2 11/10/17 16:00 97.6 68 21 124/75 (91) 96 97.6 11/10/17 15:52 62 11/10/17 12:00 97.3 60 21 131/72 (91) 96 97.3 11/10/17 11:35 69 11/10/17 11:28 Room Air 11/10/17 09:48 61 128/99 11/10/17 08:00 97.8 61 19 128/99 (109) 97 97.8 11/10/17 07:44 66 11/10/17 04:00 59 11/10/17 04:00 96.8 61 20 119/73 (88) 95 96.8 11/10/17 00:00 97.1 59 19 122/65 (84) 95 97.1 11/10/17 00:00 63 Intake and Output 11/09/17 11/10/17 19:00 07:00 # Voids 1 2 Laboratory Tests 11/10/17 05:45: White Blood Count 2.7L, Red Blood Count 4.52L, Hemoglobin 13.1L, Hematocrit 39.1L, Mean Corpuscular Volume 86, Mean Corpuscular Hemoglobin 28.9, Mean Corpuscular Hemoglobin Concent 33.5, Red Cell Distribution Width 11.8, Platelet Count 195, Mean Platelet Volume 6.0L, Neutrophils (%) (Auto) , Lymphocytes (%) ( Auto) , Monocytes (%) (Auto) , Eosinophils (%) (Auto) , Basophils (%) (Auto) , Differential Total Cells Counted 100, Neutrophils % (Manual) 33L, Lymphocytes % (Manual) 54H, Monocytes % (Manual) 11H, Eosinophils % (Manual) 1, Basophils % ( Manual) 1, Band Neutrophils 0, Platelet Estimate Adequate, Platelet Morphology Normal, Anisocytosis 1+, Sodium Level 144, Potassium Level 3.9, Chloride Level 108H, Carbon Dioxide Level 27, Anion Gap 9, Blood Urea Nitrogen 11, Creatinine 1.0, Estimat Glomerular Filtration Rate , Glucose Level 89, Calcium Level 9.1 Height (Feet): 6 Weight (Pounds): 117 General Appearance: no apparent distress, alert Cole San MD Nov 10, 2017 22:41
[2017-11-11] VITALS: BP 132/87
[2017-11-11 04:00] VITALS: BP 109/64
[2017-11-11] MEDS: NovoLOG Insulin Flexpen SUBQ SCH ×3 (05:47→17:31)
[2017-11-11 07:08] LABS: ALANINE AMINOTRANSFERASE 29 U/L (12-78); ALBUMIN 3.3 G/DL (3.4-5.0); ALBUMIN/GLOBULIN RATIO 0.8 (1.0-2.7); ALKALINE PHOSPHATASE 56 U/L (46-116); AMYLASE 67 U/L (25-115); ANION GAP 8 mmol/L (5-15); ASPARTATE AMINO TRANSFERASE 23 U/L (15-37); BILIRUBIN,TOTAL 0.6 MG/DL (0.2-1.0); BLOOD UREA NITROGEN 12 mg/dL (7-18); CARBON DIOXIDE 27 MMOL/L (21-32); CHLORIDE 107 MMOL/L (98-107); PHOSPHORUS 4.4 MG/DL (2.5-4.9); POTASSIUM 3.7 MMOL/L (3.5-5.1); SODIUM 142 MMOL/L (136-145)
[2017-11-11 07:18] LABS: HEMATOCRIT 39.9 % (42.0-52.0); HEMOGLOBIN 13.4 G/DL (14.2-18.0); MEAN CORPUSCULAR VOLUME 86 FL (80-99); PLATELET COUNT 212 K/UL (150-450); RED BLOOD COUNT 4.64 M/UL (4.70-6.10); RED CELL DISTRIBUTION WIDTH 11.5 % (11.6-14.8); WHITE BLOOD COUNT 3.1 K/UL (4.8-10.8)
[2017-11-11 08:00] VITALS: BP 106/73
[2017-11-11] MEDS: Metoprolol 25mg tab ORAL SCH (09:00)
[2017-11-11] MEDS: Heparin 5000 units/ml inj SUBQ SCH (09:01)
[2017-11-11 12:00] VITALS: BP 124/84
--- NOTE | 2017-11-11 12:23 | Pulmonology Progress Note ---
Assessment/Plan Problems: (1) Pancreatitis (2) Acute encephalopathy (3) Diabetes mellitus (4) Psychosis (5) History of asthma Assessment/Plan no new complians symptomatic treatment Brain MRI reviewed pt/ot f/u electrolyte dvt prophylaxis Subjective ROS Limited/Unobtainable: No Constitutional: Reports: no symptoms HEENT: Repors: no symptoms Respiratory: Reports: no symptoms Allergies: Coded Allergies: No Known Allergies (Unverified , 08/28/16) Objective Last 24 Hour Vital Signs Date Time Temp Pulse Resp B/P (MAP) Pulse Ox O2 Delivery O2 Flow Rate FiO2 11/11/17 12:00 98.0 64 20 124/84 (97) 98 98.0 11/11/17 09:00 81 106/73 11/11/17 09:00 Room Air 11/11/17 08:00 98.2 81 20 106/73 (84) 96 98.2 11/11/17 04:00 97.0 80 16 109/64 (79) 97 97.0 11/11/17 00:00 97.6 68 18 132/87 (102) 97 97.6 11/10/17 21:00 Room Air 11/10/17 20:46 91 106/69 11/10/17 20:00 98.2 71 18 106/69 (81) 100 98.2 11/10/17 16:00 97.6 68 21 124/75 (91) 96 97.6 11/10/17 15:52 62 Intake and Output 11/10/17 11/11/17 19:00 07:00 Intake Total 780 ml 240 ml Balance 780 ml 240 ml Intake Oral 780 ml 240 ml # Voids 1 1 # Bowel Movements 3 General Appearance: WD/WN HEENT: normocephalic, atraumatic Respiratory/Chest: chest wall non-tender, lungs clear Cardiovascular: normal peripheral pulses, normal rate Abdomen: normal bowel sounds, soft, non tender Genitourinary: normal external genitalia Extremities: no clubbing Skin: no lesions 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 Complete 11/08/17 15:30 Rectum VRE Culture - Final NO VANCOMYCIN RESISTANT ENTEROCOCCUS ... Complete Laboratory Tests 11/11/17 06:10: White Blood Count 3.1L, Red Blood Count 4.64L, Hemoglobin 13.4L, Hematocrit 39.9L, Mean Corpuscular Volume 86, Mean Corpuscular Hemoglobin 28.9, Mean Corpuscular Hemoglobin Concent 33.6, Red Cell Distribution Width 11.5L, Platelet Count 212, Mean Platelet Volume 6.0L, Neutrophils (%) (Auto) , Lymphocytes (%) (Auto) , Monocytes (%) (Auto) , Eosinophils (%) (Auto) , Basophils (%) (Auto) , Differential Total Cells Counted 100, Neutrophils % ( Manual) 49, Lymphocytes % (Manual) 37, Monocytes % (Manual) 8, Eosinophils % ( Manual) 6H, Basophils % (Manual) 0, Band Neutrophils 0, Platelet Estimate Adequate, Platelet Morphology Normal, Red Blood Cell Morphology Normal, Erythrocyte Sedimentation Rate 69H, Sodium Level 142, Potassium Level 3.7, Chloride Level 107, Carbon Dioxide Level 27, Anion Gap 8, Blood Urea Nitrogen 12 , Creatinine 1.0, Estimat Glomerular Filtration Rate , Glucose Level 107H, Calcium Level 9.0, Phosphorus Level 4.4, Magnesium Level 2.0, Total Bilirubin 0.6, Aspartate Amino Transf (AST/SGOT) 23, Alanine Aminotransferase (ALT/SGPT) 29, Alkaline Phosphatase 56, C-Reactive Protein, Quantitative 0.6, Total Protein 7.3, Albumin 3.3L, Globulin 4.0, Albumin/Globulin Ratio 0.8L, Amylase Level 67, Lipase 161 Current Medications Medications (Trade) Dose Ordered Sig/Joao Route PRN Reason Start Time Stop Time Status Last Admin Dose Admin Acetaminophen (Tylenol) 650 mg Q4H PRN ORAL T>100.5 11/10/17 20:30 12/08/17 20:29 Al Hydroxide/Mg Hydroxide (Mylanta II) 30 ml Q6H PRN ORAL dyspepsia 11/10/17 20:30 12/10/17 20:29 Dextrose (Dextrose 50%) 25 ml Q30M PRN IV Hypoglycemia 11/10/17 20:30 12/08/17 18:24 Dextrose (Dextrose 50%) 50 ml Q30M PRN IV hypoglycemia 11/10/17 20:30 12/08/17 18:29 Gabapentin (Neurontin) 300 mg THREE TIMES A DAY ORAL 11/11/17 09:00 12/09/17 08:59 10/5/18 08:59 Heparin Sodium (Porcine) (Heparin 5000 units/ml) 5,000 units EVERY 12 HOURS SUBQ 11/10/17 21:00 12/08/17 20:59 11/11/17 09:01 Insulin Aspart (NovoLOG) BEFORE MEALS AND HS SUBQ 11/10/17 21:00 12/08/17 20:59 Lorazepam (Ativan 2mg/ml 1ml) 0.5 mg Q4H PRN IV For Anxiety 11/10/17 20:30 11/15/17 20:29 Metoprolol Tartrate (Lopressor) 25 mg EVERY 12 HOURS ORAL 11/10/17 21:00 12/08/17 20:59 Morphine Sulfate (Morphine Sulfate) 1 mg Q4H PRN IVP PAIN 4-10 11/10/17 20:30 11/15/17 20:29 Ondansetron HCl (Zofran) 4 mg Q6H PRN IVP Nausea & Vomiting 11/10/17 20:30 12/10/17 20:29 Paroxetine HCl (Paxil) 40 mg BEDTIME ORAL 11/10/17 21:00 12/09/17 20:59 11/10/17 20:40 Polyethylene Glycol (Miralax) 17 gm HSPRN PRN ORAL Constipation 11/10/17 21:00 12/08/17 20:59 Quetiapine Fumarate (SEROquel) 300 mg BEDTIME ORAL 11/10/17 21:00 12/09/17 20:59 11/10/17 20:41 Zolpidem Tartrate (Ambien) 5 mg HSPRN PRN ORAL Insomnia 11/10/17 21:00 11/15/17 20:59 Mustapha Naqvi MD Nov 11, 2017 12:23
--- NOTE | 2017-11-11 12:24 | GI Initial Consult Note ---
History of Present Illness General Date patient seen: Nov 11, 2017 Time patient seen: 13:34 Reason for Hospitalization: Syncope Referring physician: CORY SWANSON Reason for Consultation: PANCREATITIS Present Illness HPI The patient himself is somewhat confused. The patient is unable to contribute much to the history and physical. Much of the history and physical is obtained from the patient's chart. The patient is a resident of [facility]. According to staff at [facility], the patient has had increased falls for the last couple of days. The patient had a syncopal episode this morning. The patient was transported to [facility]. The patient is admitted for syncopal episode to rule. GI consulted for pancreatitis. Pt seen, awake A&O NAD with no active s/sx of N/ V/D. At this time the patient denies any abdominal pain, N/V/D or constipation. Unable to obtain much history from patient. Labs reviewed showed elevated lipase levels above 1000, now have resolved and within normal limits. Unknown history of endoscopy / colonoscopy. Home Meds Reported Medications Glucagon,Human Recombinant (Glucagen) 1 Mg Vial, 1 MG IJ, KIT 11/08/17 Multivitamin With Minerals (MULTIVITAMINS WITH MINERALS*) 1 Each Tablet, 1 TAB ORAL DAILY, TAB 11/08/17 Simvastatin (ZOCOR) 40 Mg Tablet, 40 MG ORAL BEDTIME, TAB 08/28/16 Quetiapine Fumarate* (SEROQUEL*) 200 Mg Tablet, 300 MG ORAL TWICE A DAY, TAB 08/28/16 Paroxetine Hcl* (PAXIL*) 20 Mg Tablet, 40 MG PO DAILY, TAB 08/28/16 [Mylanta] No Conflict Check, 30 ML ORAL EVERY 4 HOURS PRN for GI distress 08/28/16 Magnesium Hydroxide* (MILK OF MAGNESIA*) 400 Mg/5 Ml Oral.susp, 30 ML ORAL DAILY PRN for Constipation, ML 08/28/16 Metoprolol Tartrate* (METOPROLOL TARTRATE*) 25 Mg Tablet, 25 MG ORAL EVERY 12 HOURS, TAB 08/28/16 Metoclopramide Hcl* (REGLAN*) 10 Mg Tablet, 10 MG ORAL EVERY 8 HOURS PRN for GERD, TAB 08/28/16 Metformin Hcl* (METFORMIN HCL*) 500 Mg Tablet, 500 MG ORAL TWICE A DAY, TAB 08/28/16 Loperamide HCl (Loperamide) 2 Mg Capsule, 2 MG ORAL Q4H PRN for loose stool, # 20 CAP 0 Refills 08/28/16 [Lidocaine Gel 0.5%] No Conflict Check, 1 TOPIC DAILY 08/28/16 Insulin Regular, Human (HUMULIN R) 100 Unit/1 Ml Vial, SUBQ BEFORE MEALS AND HS , VIAL 08/28/16 Gabapentin* (GABAPENTIN*) 300 Mg Capsule, 300 MG ORAL THREE TIMES A DAY, CAP 0 Refills 08/28/16 Furosemide* (LASIX*) 20 Mg Tablet, 20 MG ORAL DAILY, TAB 08/28/16 Folic Acid* (FOLIC ACID*) 1 Mg Tablet, 1 MG ORAL DAILY, TAB 08/28/16 Acetaminophen* (ACETAMINOPHEN 325MG TABLET*) 325 Mg Tablet, 650 MG ORAL Q4H PRN for Mild Pain/Temp > 100.5, TAB 08/28/16 Med list reviewed/reconciled: Yes Allergies: Coded Allergies: No Known Allergies (Unverified , 08/28/16) Patient History Limited by: medical condition History Provided By: Medical Record [facility] Narrative 1. Diabetes type 2. 2. Hypertension. 3. Hypercholesteremia. 4. Gastroesophageal reflux disease. 5. Paranoid schizophrenia. PAST SURGICAL HISTORY: Unknown. Social History: Denies: smoking, alcohol use, drug use, other Review of Systems All Other Systems: limited Physical Exam Vital Signs Date Time Temp Pulse Resp B/P (MAP) Pulse Ox O2 Delivery O2 Flow Rate FiO2 11/08/17 13:48 97.2 76 16 120/80 97 Room Air 97.2 Sp02 EP Interpretation: reviewed, normal Labs Laboratory Tests Test 11/11/17 06:10 White Blood Count 3.1 K/UL (4.8-10.8) L Red Blood Count 4.64 M/UL (4.70-6.10) L Hemoglobin 13.4 G/DL (14.2-18.0) L Hematocrit 39.9 % (42.0-52.0) L Mean Corpuscular Volume 86 FL (80-99) Mean Corpuscular Hemoglobin 28.9 PG (27.0-31.0) Mean Corpuscular Hemoglobin Concent 33.6 G/DL (32.0-36.0) Red Cell Distribution Width 11.5 % (11.6-14.8) L Platelet Count 212 K/UL (150-450) Mean Platelet Volume 6.0 FL (6.5-10.1) L Neutrophils (%) (Auto) % (45.0-75.0) Lymphocytes (%) (Auto) % (20.0-45.0) Monocytes (%) (Auto) % (1.0-10.0) Eosinophils (%) (Auto) % (0.0-3.0) Basophils (%) (Auto) % (0.0-2.0) Differential Total Cells Counted 100 Neutrophils % (Manual) 49 % (45-75) Lymphocytes % (Manual) 37 % (20-45) Monocytes % (Manual) 8 % (1-10) Eosinophils % (Manual) 6 % (0-3) H Basophils % (Manual) 0 % (0-2) Band Neutrophils 0 % (0-8) Platelet Estimate Adequate Platelet Morphology Normal Red Blood Cell Morphology Normal Erythrocyte Sedimentation Rate 69 MM/HR (0-20) H Sodium Level 142 MMOL/L (136-145) Potassium Level 3.7 MMOL/L (3.5-5.1) Chloride Level 107 MMOL/L (98-107) Carbon Dioxide Level 27 MMOL/L (21-32) Anion Gap 8 mmol/L (5-15) Blood Urea Nitrogen 12 mg/dL (7-18) Creatinine 1.0 MG/DL (0.55-1.30) Estimat Glomerular Filtration Rate mL/min (>60) Glucose Level 107 MG/DL (74-106) H Calcium Level 9.0 MG/DL (8.5-10.1) Phosphorus Level 4.4 MG/DL (2.5-4.9) Magnesium Level 2.0 MG/DL (1.8-2.4) Total Bilirubin 0.6 MG/DL (0.2-1.0) Aspartate Amino Transf (AST/SGOT) 23 U/L (15-37) Alanine Aminotransferase (ALT/SGPT) 29 U/L (12-78) Alkaline Phosphatase 56 U/L (46-116) C-Reactive Protein, Quantitative 0.6 mg/dL (0.00-0.90) Total Protein 7.3 G/DL (6.4-8.2) Albumin 3.3 G/DL (3.4-5.0) L Globulin 4.0 g/dL Albumin/Globulin Ratio 0.8 (1.0-2.7) L Amylase Level 67 U/L (25-115) Lipase 161 U/L (73-393) General Appearance: well appearing, no apparent distress, alert Head: normocephalic EENT: PERRL/EOMI, normal ENT inspection Neck: supple Respiratory: normal breath sounds, no respiratory distress Cardiovascular: normal rate Gastrointestinal: normal inspection, non tender, soft, normal bowel sounds, non -distended Rectal: deferred Genitourinary: deferred Musculoskeletal: normal inspection, back normal Neurologic: normal inspection, alert, oriented x3, responsive Psychiatric: normal inspection, judgement/insight normal, memory normal Skin: normal inspection, normal color, no rash, warm/dry, palpation normal, well hydrated Lymphatic: normal inspection, no adenopathy Current Medications Current Medications Medications (Trade) Dose Ordered Sig/Joao Route PRN Reason Start Time Stop Time Status Last Admin Dose Admin Acetaminophen (Tylenol) 650 mg Q4H PRN ORAL T>100.5 11/10/17 20:30 12/08/17 20:29 Al Hydroxide/Mg Hydroxide (Mylanta II) 30 ml Q6H PRN ORAL dyspepsia 11/10/17 20:30 12/10/17 20:29 Dextrose (Dextrose 50%) 25 ml Q30M PRN IV Hypoglycemia 11/10/17 20:30 12/08/17 18:24 Dextrose (Dextrose 50%) 50 ml Q30M PRN IV hypoglycemia 11/10/17 20:30 12/08/17 18:29 Gabapentin (Neurontin) 300 mg THREE TIMES A DAY ORAL 11/11/17 09:00 12/09/17 08:59 11/11/17 08:59 Heparin Sodium (Porcine) (Heparin 5000 units/ml) 5,000 units EVERY 12 HOURS SUBQ 11/10/17 21:00 12/08/17 20:59 11/11/17 09:01 Insulin Aspart (NovoLOG) BEFORE MEALS AND HS SUBQ 11/10/17 21:00 12/08/17 20:59 Lorazepam (Ativan 2mg/ml 1ml) 0.5 mg Q4H PRN IV For Anxiety 11/10/17 20:30 11/15/17 20:29 Metoprolol Tartrate (Lopressor) 25 mg EVERY 12 HOURS ORAL 11/10/17 21:00 12/08/17 20:59 Morphine Sulfate (Morphine Sulfate) 1 mg Q4H PRN IVP PAIN 4-10 11/10/17 20:30 11/15/17 20:29 Ondansetron HCl (Zofran) 4 mg Q6H PRN IVP Nausea & Vomiting 11/10/17 20:30 12/10/17 20:29 Paroxetine HCl (Paxil) 40 mg BEDTIME ORAL 11/10/17 21:00 12/09/17 20:59 11/10/17 20:40 Polyethylene Glycol (Miralax) 17 gm HSPRN PRN ORAL Constipation 11/10/17 21:00 12/08/17 20:59 Quetiapine Fumarate (SEROquel) 300 mg BEDTIME ORAL 11/10/17 21:00 12/09/17 20:59 11/10/17 20:41 Zolpidem Tartrate (Ambien) 5 mg HSPRN PRN ORAL Insomnia 11/10/17 21:00 11/15/17 20:59 GI: Plan Problems: (1) Pancreatitis (2) Gastroesophageal reflux disease Plan acute pancreatitis, now resolved. symptomatic treatment at this time prn transfusions ppi tolerating diet needs outpatient GI follow up Discussed with Dr. Moreno. Thank you for this patient referral, we will follow. The patient was seen and examined at bedside and all new and available data was reviewed in the patients chart. I agree with the above findings, impression and plan. (Patient seen earlier today. Signature stamp does not reflect patient encounter time.). - MD Claudette BaezQuail Run Behavioral HealthRivera T RAIL TURNER Nov 11, 2017 12:24
[2017-11-11 16:00] VITALS: BP 126/82
--- NOTE | 2017-11-12 07:16 | Discharge Summary ---
Discharge Summary Hospital Course Date of Admission Nov 08, 2017 at 14:45 Date of Discharge Nov 11, 2017 at 19:25 Admitting Diagnosis dysrhytmia, syncope HPI Torito Coreas is a 72 year old male who was admitted on Nov 08, 2017 at 14: 45 for Dysrhytmia,Syncope Hospital Course job # [id number] Discharge Condition Upon Discharge: improving Discharge Disposition Patient was discharged to home. Discharge Diagnoses: (1) Diabetes mellitus (2) Acute encephalopathy (3) Gastroesophageal reflux disease (4) Diabetes mellitus, type II (5) Hypercholesterolemia (6) Paranoid schizophrenia (7) Syncope (8) Altered mental status (9) HTN (hypertension) Discharge Instructions Discharge Instructions Diet: diabetic calorie control, cardiac 2 GM Na, low fat Activity: resume normal activities Elijah Frederick MD Nov 12, 2017 07:16
--- NOTE | 2017-11-13 02:45 | Discharge Summary ---
DATE OF ADMISSION: 11/08/2017 DATE OF DISCHARGE: 11/11/2017 HOSPITAL COURSE: This is a 72-year-old gentleman with past medical history significant for hypertension, diabetes type 2, dyslipidemia, GERD, and paranoid schizophrenia, who presented to the hospital complaining about syncopal episode. Shortly after initial evaluation, the patient was admitted to the hospital with syncopal episode with altered mental status. Throughout the hospital course, the patient was consulted with Dr. Valentin Smalls from Neurology, Dr. San from Psychiatry, and Dr. Naqvi from Pulmonary Critical Care. The patient had multiple imaging studies done including an MRI of the brain, which noted to have chronic and age-related changes, negative for acute intracranial bleed, mass effect, or infarction. The patient was complaining about nausea and vomiting, and subsequently underwent CT scan of the abdomen and pelvis. Noted fatty liver with diverticulosis of the colon. No definite diverticulitis. Atherosclerotic vascular disease. Small umbilical hernia containing fat. Left inguinal hernia containing fat. Undescended left testicle not adequately evaluated on this study. The patient's status gradually improved and subsequently tolerated p.o. intake and the patient was discharged home today to be followed as outpatient. FINAL DIAGNOSES: 1. Altered mental status, most likely secondary to acute encephalopathy. 2. Nausea and vomiting, most likely secondary to pancreatitis. 3. Diabetes type 2. 4. Hypertension. 5. Dyslipidemia. 6. GERD. 7. Paranoid schizophrenia. 8. Syncope. MEDICATIONS ON DISCHARGE: Continue discharge medication list. ACTIVITY: As tolerated. DIET: Diabetic cardiac diet. FOLLOWUP: Advised the patient to follow up in my office within 1 week. Elijah Frederick M.D. DR: FARRAH JOB#: [id number] CC:
== END 2017-11-11 19:25 | DRG 70 ==
LOC: EDBD 13:55 → EDBEDREQ 14:13 → EMR 14:42 → 2E 14:45 → EDBEDREQ 15:18 → 3E 11-10 19:05
DX: G93.40 Encephalopathy, unspecified (principal); K85.90 Acute pancreatitis without necrosis or infection, unspecified; F20.0 Paranoid schizophrenia; R55 Syncope and collapse; R41.82 Altered mental status, unspecified; R11.2 Nausea with vomiting, unspecified; E11.9 Type 2 diabetes mellitus without complications; K21.9 Gastro-esophageal reflux disease without esophagitis; I10 Essential (primary) hypertension; E78.5 Hyperlipidemia, unspecified; K76.0 Fatty (change of) liver, not elsewhere classified; K57.90 Diverticulosis of intestine, part unspecified, without perforation or abscess without bleeding; I25.10 Atherosclerotic heart disease of native coronary artery without angina pectoris; F29 Unspecified psychosis not due to a substance or known physiological condition; Z79.4 Long term (current) use of insulin; R29.6 Repeated falls
CPT/HCPCS: 36415; 70551; 71045; 74177; 80048; 80053; 80061; 81003; 82150; 82550; 82553; 82962; 83690; 83735; 83880; 84100; 84484; 85007; 85025; 85651; 86140; 87081; 93005; 93306; 93970; 99285; J1815